=== PATIENT | female | born 1970 | race Caucasian/White ===

== ENCOUNTER 2020-09-11 08:11 | Outpatient (REF) | payer OTHER, SELFPAY ==
--- NOTE | ~2020-09-11 | US_ITS ---
EXAMINATION: US ABDOMEN COMPLETE CLINICAL INFORMATION: Abdominal pain. COMPARISON: None TECHNIQUE: Real-time imaging of the abdominal viscera. FINDINGS: PANCREAS: The head and body the pancreas are normal. The tail is not well visualized due to bowel gas. ABDOMINAL AORTA: The proximal, mid, and distal segments are normal in caliber. INFERIOR VENA CAVA: Visualized portions are normal. LIVER: Normal. The liver is normal in size. The liver contour is normal. Parenchymal echogenicity is normal. No focal hepatic lesion. There is no intrahepatic biliary duct dilatation seen. GALLBLADDER: Normal. The gallbladder is physiologically distended without evidence of stones, sludge, polyps, wall thickening or pericholecystic fluid. COMMON BILE DUCT: Normal in caliber measuring 0.4 cm in diameter. RIGHT KIDNEY: Normal. No hydronephrosis. No renal calculi or focal parenchymal lesions. The kidney measures 9.5 cm in maximum dimension. LEFT KIDNEY: Normal. No hydronephrosis. No renal calculi or focal parenchymal lesions. The kidney measures 11.3 cm in maximum dimension. SPLEEN: Normal. The spleen measures 10 cm in maximum dimension. FREE FLUID: None. US/US abdomen complete IMPRESSION: Limited visualization of the tail of the pancreas otherwise unremarkable exam.
== END 2020-09-11 08:12 | disposition home or self-care (01) ==
LOC: HO.HMGCX 08:11
PROVIDERS: PCP Internal Medicine; Visit Provider Internal Medicine
DX: R10.9 Unspecified abdominal pain (principal)
CPT/HCPCS: 76700; 99202

== ENCOUNTER 2020-10-02 09:17 | Outpatient (REF) | payer OTHER, SELFPAY ==
[2020-10-02 11:17] LABS: Hematocrit 34.7 % (37-47); Hemoglobin 10.7 g/dl (12.0-16.0); Mean Corpuscular HGB Conc 30.8 g/dl (31.0-35.0); Mean Corpuscular Hemoglobin 22.8 pg (27.0-33.0); Mean Corpuscular Volume 73.8 fL (80-98); Mean Platelet Volume 10.2 fL (9.4-12.3); Platelet Count 362 X10*3/uL (160-400); Red Cell Distribution Width 17.2 % (11.0-16.0); White Blood Count 4.2 X10*3/uL (4.8-10.8)
[2020-10-02 11:18] LABS: Glucose Urine UA NEG (NEG); Leukocyte Esterase Urine NEG (NEG); Nitrite Urine NEG (NEG); Specific Gravity - Urine 1.015 (1.005-1.025); Urine Blood NEG (NEG); Urine Ketones NEG (NEG); Urine Protein NEG (NEG-TRACE)
[2020-10-02 11:24] LABS: Appearance Urine HAZY; Color Urine YELLOW
[2020-10-02 11:38] LABS: Alanine Aminotransferase 9 U/L (0-31); Albumin Level 3.8 g/dL (3.5-5.0); Alkaline Phosphatase 91 U/L (39-117); Anion Gap 12 (12-20); Aspartate Amino Transferase 14 U/L (5-31); Bilirubin Total 0.4 mg/dL (0.0-1.0); Blood Urea Nitrogen 14 mg/dL (9-16); Carbon Dioxide 25 mmol/L (22-29); Chloride 106 mmol/L (96-108); Cholesterol 176 mg/dL; Estimated Glomerular Filt Rate > 60; Glucose Fasting 93 mg/dL (60-99); HDL Cholesterol 54 mg/dL; LDL Cholesterol Calculated 93 mg/dl; Potassium 4.2 mmol/L (3.3-5.1); Sodium 139 mmol/L (135-145); Triglycerides 146 mg/dL
[2020-10-02 11:45] LABS: Bacteria Urine TRACE /LPF; RBC Urine 0 /HPF (0); Squamous Epithelial Cell Urine 2+ /LPF; WBC Urine 0-2 /HPF (0-4)
[2020-10-02 12:01] LABS: Thyroid Stimulating Hormone 0.86 uIU/mL (0.32-4.0)
[2020-10-07 14:32] LABS: Transglutaminase Ab IgG 1 U/mL; Transglutaminase IgA 1 U/mL
== END 2020-10-02 09:18 | disposition home or self-care (01) ==
LOC: HO.HMGCLDS 09:17
PROVIDERS: PCP Internal Medicine; Visit Provider Nurse Practitioner Family
DX: Z00.00 Encounter for general adult medical examination without abnormal findings (principal); R10.11 Right upper quadrant pain; A04.8 Other specified bacterial intestinal infections; H93.19 Tinnitus, unspecified ear; Z83.79 Family history of other diseases of the digestive system
CPT/HCPCS: 36415; 80053; 80061; 81001; 83516; 84443; 85027

== ENCOUNTER 2020-10-17 14:54 | Outpatient (REF) | payer OTHER, SELFPAY ==
[2020-10-18 15:16] LABS: H Pylori Breath Test DETECTED (NOT DETECTED)
== END 2020-10-17 14:55 | disposition home or self-care (01) ==
LOC: CF 14:54
PROVIDERS: Referring Provider Internal Medicine; Visit Provider Nurse Practitioner Family
DX: K21.9 Gastro-esophageal reflux disease without esophagitis (principal); R10.9 Unspecified abdominal pain; K59.00 Constipation, unspecified; D64.9 Anemia, unspecified; Z12.11 Encounter for screening for malignant neoplasm of colon; Z11.0 Encounter for screening for intestinal infectious diseases
CPT/HCPCS: 83013; 99212

== ENCOUNTER → 2020-12-11 09:41 | Outpatient (BNVA) | payer OTHER, SELFPAY | PROVIDERS: PCP Internal Medicine; Referring Provider Nurse Practitioner Family; Visit Provider Internal Medicine | DX: Z01.810 Encounter for preprocedural cardiovascular examination (principal); R06.02 Shortness of breath | CPT/HCPCS: 93005; 99202 ==

== ENCOUNTER → 2021-01-05 07:15 | Outpatient (REF) | payer OTHER, SELFPAY ==
--- NOTE | 2021-01-05 07:18 | CA_ITS ---
Transthoracic Echocardiogram Patient (Last, First, Middle): Aura Damon, Gender: Female Date of : 1970 Age: 50 Procedure Date: 01/05/2021 Procedure Type: Transthoracic Echocardiogram Location: OP Height: 160.02 cm Weight: 99.79 kg BSA: 2.01 m2 Heart Rate: bpm BP: 128 / 78 mmHg Premium Service Representative: VH/CP Referring MD: Valente Rivera MD Information Technology Specialist: Thong Dorsey MD Symptoms: Z01.810 preprocedural cardiovascular exam, R06.02 SOB Study Quality: Fair ECG Rhythm: Sinus Conclusions: - Essentially normal study Findings Left Ventricle Normal left ventricular size, thickness, and systolic function. The visually estimated ejection fraction is between 60-65%. Spectral Doppler is indicative of a normal filling pattern. Right Ventricle Normal right ventricular cavity size and systolic function. Atria The left atrium is normal in size. There is no evidence of interatrial shunt. The right atrium is normal in size. Aortic Valve Normal aortic valve structure and function. There is no aortic valve stenosis. There is no aortic valve regurgitation. Mitral Valve Normal mitral valve structure and function. There is trace mitral valve regurgitation. There is no mitral valve stenosis. Pulmonic Valve The pulmonic valve is likely normal. Tricuspid Valve Normal tricuspid valve structure. The right ventricular systolic pressure is normal. The right ventricular systolic pressure is 19 mmHg. There is no evidence of pulmonary hypertension. Great Vessels All visible segments of the aorta are normal in size. The pulmonary artery was not well visualized. Venous The inferior vena cava is normal in size and collapses greater than 50% with inspiration. Pericardium/Pleural There is no evidence of pericardial effusion. Prior Study Comparison No prior study available for comparison. Measurements 2D Linear Measurements IVSd: 0.68 0.6-0.9/0.6-1.0 cm LVIDd: 5.46 3.9-5.3/4.2-5.9 cm LVIDd Index: 2.72 2.4-3.2/2.2-3.1 cm/m2 LVIDs: 3.37 2.0-3.6 cm LVPWd: 0.76 0.7-1.1 cm Ao Root: 2.80 2.1-3.5 cm LA Diam: 3.70 2.7-3.8/3.0-4.0 cm LAIDs Index: 1.84 1.5-2.3 cm/m2 LV Mass: 171.92 67-162/88-224 g LV Mass Index: 85.53 43-95/49-115 g/m2 LVOT Diam: 2.00 3.0+(-)1.3 cm 2D Systolic Function EF 4C: 64.50 >55% EF 2C: 67.30 >55% EF BiP: 64.80 >55% Mitral Valve MV Pk E: 0.95 MV PK A: 0.65 MV Decel Time: 180.00 E/A: 1.50 E'Lateral: 12.10 E'Medial: 11.10 E/E' Med: 8.50 E/E' Lat: 7.80 PHT: 53.00 MVA PHT: 4.15 Decel Treasure: 5.27 Aortic Valve AoV Pk Mateo: 1.34 AoV Mn Mateo: 0.95 AoV VTI: 0.34 AoV Pk Grad: 7.00 Aov Mn Grad: 4.00 NNAMDI Cont.VTI: 1.70 LVOT LVOT Pk Mateo: 0.76 LVOT Mn Mateo: 0.48 LVOT VTI: 0.18 LVOT Pk Grad: 2.00 LVOT Mn Grad: 1.00 LVOT Diam: 2.00 LVOT Area: 3.14 Diastolic Function MV Pk E: 0.95 MV Pk A: 0.65 E/A: 1.50 E'Medial: 11.10 E/E' Med: 8.50 E' Laterial: 12.10 E/E' Lat: 7.80 Tricuspid Valve TR Pk Mateo: 2.03 TR Pk Grad: 16.00 RA Press: 3.00 RVSP: 19.00 Great Vessels Aorta Ao Root-2D: 2.80 2.0-3.7 cm Ao Asc: 2.50 2.1-3.4 cm Ao Arch: 2.30 Updated in Other Vendor System with Status of Final Thong Dorsey MD electronically signed on 01/05/2021 9:10:41 AM with status of Final
== END ==
LOC: HO.CARD 07:15
PROVIDERS: Visit Provider Internal Medicine
DX: Z01.810 Encounter for preprocedural cardiovascular examination (principal); R06.02 Shortness of breath
CPT/HCPCS: 93306

== ENCOUNTER 2021-01-05 13:56 | Day surgery (SDC) | payer OTHER, SELFPAY ==
[2020-12-29 15:08] VITALS: BMI 39.6
[2021-01-02 10:21] VITALS: BMI 39.8
--- NOTE | 2021-01-04 14:44 | P.CONAN_ITS ---
Documented by User: Scarlett Templeton NP 01/04/21 14:47 HPI - Anesthesia Eval Consult details Narrative: 50yo F for Upper Endoscopy and Colonoscopy CARDIAC CLEARANCE PENDING ECHO - TBD DOS @ 0730 [facility] Active Problems Active Problems: All Active Problems (Updated 01/02/21 @ 10:21 by Lexie Smith, IFEOMA) Urticaria (Acute) Preoperative cardiovascular examination (Acute) SOB (shortness of breath) (Acute) Abdominal pain (Acute) Tinnitus (Acute) H. pylori infection (Acute) Annual physical exam (Acute) Past Medical History Medical History Abdominal pain Annual physical exam H. 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, Alcohol intake: never Patient Tobacco Use Status: Never used Tobacco Use of substances other than those prescribed or required for medical reasons: No Are you DNR?: No Advance Directives: No Advance Directives Information Provided: Yes (mailed) Advance Directives on File: No Recently lost weight without trying: No Patient : No FDLMP: 04/2020 hysterectomy Meds Allergies Allergy/AdvReac Type Severity Reaction Status Date / Time No Known Allergies Allergy Verified 01/02/21 10:18 Exam Exam Date and Time: January 04, 2021 1444 Height,Weight and Vital Signs: Height 5 ft 3 in Weight 102.058 kg Pertinent Lab Results Pertinent Lab Results: Laboratory Tests 10/02/20 10/02/20 09:23 09:23 WBC 4.2 L Hgb 10.7 L Hct 34.7 L Plt Count 362 Sodium 139 Potassium 4.2 Chloride 106 Carbon Dioxide 25 BUN 14 Creatinine 0.80 Narrative Narrative: EKG 11/2020 sinus rhythm at 73/Min; no significant ST-T changes and otherwise unremarkable. Assessment and Plan Assessment Anesthesia Assessment: Chart Reviewed Documented by User: Sherrie Hilliard MD 01/05/21 15:59 PMFSH Past Medical History Medical History Abdominal pain Annual physical exam H. 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, Alcohol intake: never Patient Tobacco Use Status: Never used Tobacco Use of substances other than those prescribed or required for medical reasons: No Are you DNR?: No Advance Directives: No Advance Directives Information Provided: Yes (mailed) Advance Directives on File: No Recently lost weight without trying: No Patient : No FDLMP: 04/2020 hysterectomy Meds Allergies Allergy/AdvReac Type Severity Reaction Status Date / Time No Known Allergies Allergy Verified 01/02/21 10:18 Exam Airway Mallampati Class: II TM Dist: >3cm Neck ROM: Full Denture: Lower Heart: RRR Lungs: CTA Assessment and Plan Final Anesthetic Review Family History of Problems with Anesthesia: No
[2021-01-05 14:14] VITALS: BP 143/79; PULSE 75; RESP 16; TEMP 36.9; O2SAT 96
[2021-01-05] MEDS: Lactated Ringers 1,000 ML 100 ML IVCONT (14:27)
--- NOTE | 2021-01-05 14:37 | P.CONAN_ITS ---
[facility] Active Problems Active Problems: All Active Problems (Updated 01/02/21 @ 10:21 by Lexie cuba, IFEOMA) Urticaria (Acute) Preoperative cardiovascular examination (Acute) SOB (shortness of breath) (Acute) Abdominal pain (Acute) Tinnitus (Acute) H. pylori infection (Acute) Annual physical exam (Acute) Past Medical History Medical History (Updated 01/02/21 @ 10:21 by Lexie Smith RN) Abdominal pain Annual physical exam H. 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, Alcohol intake: never Patient Tobacco Use Status: Never used Tobacco Use of substances other than those prescribed or required for medical reasons: No Are you DNR?: No Advance Directives: No Advance Directives Information Provided: Yes (mailed) Advance Directives on File: No Recently lost weight without trying: No Patient : No FDLMP: 04/2020 hysterectomy Meds Allergies Allergy/AdvReac Type Severity Reaction Status Date / Time No Known Allergies Allergy Verified 01/02/21 10:18 Active Medications: Current Medications Lactated Ringer's (Lr) 1,000 mls @ 100 mls/hr IVCONT .Q10H MANOJ Last Admin: 01/05/21 14:27 Dose: 100 mls/hr Documented by: Exam Exam Date and Time: January 05, 2021 1437 Height,Weight and Vital Signs: Height 5 ft 3 in Weight 102.058 kg Last Vital Signs Temp 98.4 F 01/05/21 14:14 Pulse 75 01/05/21 14:14 Resp 16 01/05/21 14:14 BP 143/79 H 01/05/21 14:14 Pulse Ox 96 01/05/21 14:14 Airway Mallampati Class: II TM Dist: >3cm Neck ROM: Full Heart: rrr Lungs: cta Assessment and Plan Assessment Anesthesia Assessment: Anesthesia Plan Discussed and Chart Reviewed Final Anesthetic Review Family History of Problems with Anesthesia: No History of Problems with Anesthesia: No NPO: Yes ASA Class: II Final Preanesthetic Review: No Changes in Pt Med Stat and Consent Obtained/Reviewed Patient Risk: Intermediate Procedure Risk: Intermediate Anesthetic Plan Anesthetic Plan: MAC: Disposition: Standard PACU
--- NOTE | 2021-01-05 14:47 | MHC.SHP ---
Pre-Procedural Eval Section A Date of Service: 01/05/21 The patient is an INPATIENT: No The History & Physical has been completed within 30 days and I have reviewed it.: No Section B Chief Complaint: screening, GERD, anemia Details of Present Illness: Colon cancer screening upper abdominal pain, H.pylori infection, anemia Relevant Family History (Specify if Yes): No Relevant Social History: None Present Medications: see Short Stay Collaborative assessment Medical History: Significant History (Abdominal pain Annual physical exam H. pylori infection Tinnitus) History of Previous Operations: Relevant previous surgery/procedure and date(s) (History of , history of hysterectomy, status post hemorrhoidectomy) Allergies: Allergies Allergy/AdvReac Type Severity Reaction Status Date / Time No Known Allergies Allergy Verified 01/02/21 10:18 Review of Systems Sugical H&P ROS: Negative: Constitution, Cardiovascular and Respiratory and Yes, Specify: Gastrointestinal (intermittent epigastric discomfort) Exam Surgical H&P Exam: Normal: Heart, Normal: Lungs, Normal: Extremities and Normal: Abdomen Plan Diagnosis/Plan: Unchanged I have reviewed the history and physical and performed a pertinent physical examination on my patient. No changes have occurred unless specified.
--- NOTE | 2021-01-05 15:50 | PM.OP ---
Brief Operative Note Date of Service: 01/05/21 Pre-op diagnosis: Colon cancer screening, upper abdominal pain, GERD, anemia Post-op diagnosis: other (Gastritis, gastric ulcer, colon polyp, diverticulosis and hemorrhoids) Procedure: FLEXIBLE TRANSORAL UPPER GASTROINTESTINAL ENDOSCOPY WITH BIOPSIES AND COLONOSCOPY TILL CECUM WITH SNARE POLYPECTOMY AND HEMOCLIP PLACEMENT UPPER ENDOSCOPY Consent: Indications for the procedure and potential complications of bleeding, perforation, reaction to medications and missed diagnosis were discussed with the patient and informed consent was obtained. Instrument: Olympus GIF H 190 mid size upper endoscope Monitoring: Vital signs and clinical assessment, continuous EKG monitoring, Pulse oximetry, Carbon Dioxide monitoring and blood pressure monitoring were done throughout the procedure. Procedure: The patient was placed in the left lateral decubitis position and pre-procedure medications were administered and a bite block was placed. The endoscope was inserted into the mouth and advanced under direct vision to the third part of duodenum. A careful inspection was made as the upper endoscope was withdrawn including a retroflexed examination of the proximal stomach; Findings and interventions are described below. Findings: Larynx: Normal Esophagus: GE junction at 35 cms. No esophagitis or Vásquez's. Stomach: A 1 cms healing ulcer in the prepyloric area - biopsied. Moderate gastric antral erythema. Biopsies were obtained. Grade 2 flap valve on retroflexed examination of the cardia. Duodenum: Normal bulb and descending duodenum. Biopsies were obtained from 3rd part of the duodenum to check for celiac sprue Intervention: Biopsies as noted above COLONOSCOPY PROCEDURE NOTE Consent: Indications for the procedure and potential complications of bleeding, perforation, reaction to medications and missed diagnosis were discussed with the patient and informed consent was obtained. Instrument: Olympus PCF H 190 L variable stiffness pediatric colonoscope Monitoring: Vital signs and clinical assessment, intermittent blood pressure monitoring, continuous EKG monitoring, Pulse oximetry and Carbon Dioxide monitoring were done throughout the procedure. Colon withdrawl time was 21 minutes. Procedure: The patient was placed in the left lateral decubitis position and pre-procedure medications were administered. After a digital rectal examination of the ano-rectum, the video colonoscope was inserted into the rectum and advanced through the colon to the cecum. The colonoscope was slowly withdrawn in a retrograde panoramic fashion and the colon mucosa was carefully examined including a retroflexed view of the rectum. Findings and interventions are described below. Procedure Difficulty: : Without difficulty Findings: Terminal Ileum: Not evaluated Cecum: Normal Ascending Colon: Normal Transverse Colon: Normal Descending Colon: Normal Sigmoid Colon: A 7-8 mm sessile polyp removed with a cold snare. Slow oozing noted at the polypectomy site controlled with placement of a hemoclip. Moderate diverticulosis Rectum: Normal Ano-rectum: Small internal hemorrhoids Colon preparation: Good after some irrigation Impression and Post Procedure Diagnosis: Endoscopy Findings: STOMACH: A 1 cms healing ulcer in the prepyloric area - biopsied. Likely due to H Pylori infection since patient denies NSAID or aspirin use. DUODENUM: normal - Colonoscopy Findings: One small polyp removed Mild diverticulosis seen in the sigmoid colon Small hemorrhoids on retroflexed exam. Plan: Await pathology results Patient has an appointment on 01/19/21 in the GI Clinic with Gissell Marroquin FNP-BC . Repeat Colonoscopy interval based on path results - in 5 years if polyps are adenomatous and 10 years if polyps are hyperplastic. Above findings were reviewed with the patient and colon polyps and peptic ulcer handouts were given in the discharge area. Pt was advised to resume Omeprazole for 3 months for gastric ulcer. Repeat EGD in 3 months to confirm Gastric Ulcer has healed. Surgeon: Erica Donnelly MD Anesthesia: MAC (Aura Lazaro CRNA) Was an Director Of Employee Development used for this Procedure?: No Director Of Employee Development: Adali [place] Estimated blood loss (mL): 2 Pathology: other ( A- Small bowel bx for celiac disease B- Gastric antrum bx r/o h. pylori C- Bx gastric ulcer D- Sigmoid polyp) Condition: stable Disposition: PACU
--- NOTE | 2021-01-05 15:50 | W.PM.OPN ---
Operative Note Operative Note Date of Service: 01/05/21 Narrative: Pre-op diagnosis:?Colon cancer screening, upper abdominal pain, GERD, anemia Post-op diagnosis:?other (Gastritis, gastric ulcer, colon polyp, diverticulosis and hemorrhoids) Procedure:? FLEXIBLE TRANSORAL UPPER GASTROINTESTINAL ENDOSCOPY WITH BIOPSIES AND COLONOSCOPY TILL CECUM WITH SNARE POLYPECTOMY AND HEMOCLIP PLACEMENT UPPER ENDOSCOPY Consent:?Indications for the procedure and potential complications of bleeding, perforation, reaction to medications and missed diagnosis were discussed with the patient and informed consent was obtained. Instrument:?Olympus GIF H 190 mid size upper endoscope Monitoring: Vital signs and clinical assessment, continuous EKG monitoring, Pulse oximetry, Carbon Dioxide monitoring and blood pressure monitoring were done throughout the procedure. Procedure:?The patient was placed in the left lateral decubitis position and pre-procedure medications were administered and a bite block was placed. The endoscope was inserted into the mouth and advanced under direct vision to the third part of duodenum. A careful inspection was made as the upper endoscope was withdrawn including a retroflexed examination of the proximal stomach; Findings and interventions are described below. Findings: Larynx:??Normal Esophagus:?GE junction at 35 cms.? No esophagitis or Vásquez's. Stomach:?A 1 cms healing ulcer in the prepyloric area - biopsied.? Moderate gastric antral erythema. Biopsies were obtained. Grade 2 flap valve on retroflexed examination of the cardia. Duodenum:?Normal bulb and descending duodenum. Biopsies were obtained from 3rd part of the duodenum to check for celiac sprue Intervention:?Biopsies as noted above COLONOSCOPY PROCEDURE NOTE Consent:?Indications for the procedure and potential complications of bleeding, perforation, reaction to medications and missed diagnosis were discussed with the patient and informed consent was obtained. Instrument:?Olympus PCF H 190 L variable stiffness pediatric colonoscope Monitoring:?Vital signs and clinical assessment, intermittent blood pressure monitoring, continuous EKG monitoring, Pulse oximetry and Carbon Dioxide monitoring were done throughout the procedure. Colon withdrawl time was 21 minutes. Procedure:?The patient was placed in the left lateral decubitis position and pre-procedure medications were administered. After a digital rectal examination of the ano-rectum, the video colonoscope was inserted into the rectum and advanced through the colon to the cecum. The colonoscope was slowly withdrawn in a retrograde panoramic fashion and the colon mucosa was carefully examined including a retroflexed view of the rectum. Findings and interventions are described below. Procedure Difficulty:?: Without difficulty Findings: Terminal Ileum: Not evaluated Cecum:? Normal Ascending Colon:??Normal Transverse Colon:??Normal Descending Colon:? Normal Sigmoid Colon:? A 7-8 mm sessile polyp removed with a cold snare.? Slow oozing noted at the polypectomy site controlled with placement of a hemoclip.? Moderate diverticulosis Rectum:??Normal Ano-rectum:??Small internal hemorrhoids Colon preparation:? Good after some irrigation Impression and Post Procedure Diagnosis: Endoscopy Findings: STOMACH: A 1 cms healing ulcer in the prepyloric area - biopsied. Likely due to H Pylori infection since patient denies NSAID or aspirin use. DUODENUM: normal - Colonoscopy Findings: One small polyp removed Mild diverticulosis seen in the sigmoid colon Small hemorrhoids on retroflexed exam. Plan: Await pathology results Patient has an appointment on 01/19/21 in the GI Clinic with ? Gissell Marroquin FNP-BC . Repeat Colonoscopy interval based on path results - in 5 years if polyps are adenomatous and 10 years if polyps are hyperplastic. Above findings were reviewed with the patient and colon polyps and peptic ulcer handouts were given in the discharge area. Pt was advised to resume Omeprazole for 3 months for gastric ulcer. Repeat EGD in 3 months to confirm Gastric Ulcer has healed. Surgeon:?Erica Donnelly MD Anesthesia:?MAC (Aura Lazaro CRNA) Was an Alarm Mechanism Adjuster used for this Procedure?:?No Alarm Mechanism Adjuster:?Adali [place] Estimated blood loss (mL):?2 Pathology:?other ( A- Small bowel bx for celiac disease? B- Gastric antrum bx r/o h. pylori? C- Bx gastric ulcer? D- Sigmoid polyp) Condition:?stable Disposition:?PACU
[2021-01-05 16:45] VITALS: BP 135/87; PULSE 98; RESP 16; TEMP 36.4; O2SAT 99
[2021-01-05 17:00] VITALS: BP 113/71; PULSE 85; RESP 16; TEMP 36.4; O2SAT 99
== END 2021-01-05 17:11 | disposition home or self-care (01) ==
PROVIDERS: PCP Internal Medicine; Visit Provider Internal Medicine Gastroenterology
PROC: (CPT 45385; principal; 2021-01-05 15:30)
DX: Z12.11 Encounter for screening for malignant neoplasm of colon (principal); D12.5 Benign neoplasm of sigmoid colon; K57.30 Diverticulosis of large intestine without perforation or abscess without bleeding; K64.8 Other hemorrhoids; K21.9 Gastro-esophageal reflux disease without esophagitis; K25.9 Gastric ulcer, unspecified as acute or chronic, without hemorrhage or perforation; K29.70 Gastritis, unspecified, without bleeding; B96.81 Helicobacter pylori [H. pylori] as the cause of diseases classified elsewhere; D64.9 Anemia, unspecified
CPT/HCPCS: 45385; 43239; 88305; 88342

== ENCOUNTER 2021-01-18 13:59 | Outpatient (REF) | payer OTHER, SELFPAY ==
[2021-01-18 14:53] LABS: Prothrombin Time 11.5 SEC (9.9-13.0)
[2021-01-18 15:04] LABS: Iron 37 mcg/dL (30-160); Percent Iron Saturation 8 % (15-50); Total Iron Binding Capacity 475 mcg/dL (228-428); Unsaturated Iron Binding 438 ug/dL
[2021-01-18 15:16] LABS: Lipase 30 U/L (8-78)
[2021-01-18 15:24] LABS: Ferritin 9 ng/mL (10-250)
[2021-01-18 15:29] LABS: Gamma Glutamyl Transpeptidase 15 U/L (7-33)
== END 2021-01-18 14:00 | disposition home or self-care (01) ==
LOC: HO.LAB 13:59
PROVIDERS: PCP Internal Medicine; Visit Provider Nurse Practitioner Family
DX: R10.9 Unspecified abdominal pain (principal); R74.8 Abnormal levels of other serum enzymes
CPT/HCPCS: 36415; 82728; 82977; 83540; 83690; 85610

== ENCOUNTER → 2021-02-23 09:16 | Outpatient (BNVA) | payer OTHER, SELFPAY | PROVIDERS: PCP Internal Medicine; Referring Provider Internal Medicine; Visit Provider Nurse Practitioner Family ==

== ENCOUNTER → 2021-04-27 11:49 | Outpatient (BNVA) | payer OTHER, SELFPAY | PROVIDERS: PCP Internal Medicine; Visit Provider Nurse Practitioner Family ==

== ENCOUNTER 2021-06-15 22:00 | Outpatient (REF) | payer OTHER, SELFPAY | END 2021-06-15 22:01 | disposition home or self-care (01) | LOC: HO.LNP 22:00 | PROVIDERS: Visit Provider Nurse Practitioner Family | DX: Z11.0 Encounter for screening for intestinal infectious diseases (principal); K21.9 Gastro-esophageal reflux disease without esophagitis | CPT/HCPCS: 87338 ==

== ENCOUNTER 2021-07-11 03:30 | Emergency (ER) | payer OTHER, SELFPAY ==
--- NOTE | ~2021-07-11 | CT_ITS ---
EXAMINATION: CT ABDOMEN AND PELVIS WITH CONTRAST CLINICAL INFORMATION: Abdominal pain. History of peptic ulcer disease. COMPARISON: Ultrasound from 09/11/2020 TECHNIQUE: Multidetector volumetric images were obtained from the superior aspect of the liver through the pubic symphysis following administration 85 mL of Omnipaque 350 intravenous contrast. Sagittal and coronal reformatted images were obtained on the technologist's workstation. Oral contrast: No This CT examination was performed using dose optimization techniques as appropriate, variously including the following: *Automated exposure control *Adjustment of mA and/or kV according to patient size (this includes techniques or standardized protocols for targeted exams where dose is matched to indication/reason for exam; i.e. extremities or head) *Use of iterative reconstruction technique DLP: 920 mGy-cm FINDINGS: LUNG BASES: Bibasilar atelectasis. The visualized cardiac structures are unremarkable. LIVER, GALLBLADDER, AND BILIARY TREE: The liver is normal in size, shape, and attenuation. No focal hepatic lesion or biliary ductal dilatation is present. Small stone layering in the gallbladder lumen. No wall thickening or adjacent inflammation. PANCREAS: Unremarkable. SPLEEN: Unremarkable. ADRENAL GLANDS: Unremarkable. KIDNEYS AND URETERS: The kidneys are normal in size, shape, and attenuation. No hydronephrosis, hydroureter, or calculi seen. No perinephric stranding. BLADDER: Unremarkable. GASTROINTESTINAL TRACT: The stomach is unremarkable. Normal caliber small bowel. No obstruction. No colonic wall thickening or inflammatory change. No free air or free fluid. Normal appendix. ABDOMINAL WALL: No significant hernia is appreciated. LYMPH NODES: Normal. VASCULAR: Unremarkable. PELVIC VISCERA: Uterus not seen. 3.2 cm simple appearing right adnexal cyst. This is almost certain likely benign. OSSEOUS STRUCTURES: No acute or suspicious osseous abnormality. Mild degenerative changes in the spine. CT/CT abdomen pelvis w con IMPRESSION: Cholelithiasis without evidence of acute cholecystitis. No acute inflammatory changes of the abdomen or pelvis. Fleischner guidelines were followed.
--- NOTE | 2021-07-11 03:39 | ECG_ITS ---
Test Reason : flank pain Blood Pressure : / mmHG Vent. Rate : 078 BPM Atrial Rate : 078 BPM P-R Int : 132 ms QRS Dur : 084 ms QT Int : 398 ms P-R-T Axes : 046 -05 037 degrees QTc Int : 453 ms Normal sinus rhythm Normal ECG No previous ECGs available Referred By: Generic ED Physician Electronically Signed By:KHRIS HUNT MD
[2021-07-11 03:40] VITALS: BP 122/108; PULSE 83; RESP 24; TEMP 36.8; O2SAT 95; BMI 38.9
[2021-07-11 03:55] LABS: Hematocrit 37.8 % (37.0-47.0); Hemoglobin 12.6 g/dl (12.0-16.0); Mean Corpuscular HGB Conc 33.3 g/dl (31.0-35.0); Mean Corpuscular Hemoglobin 27.3 pg (27.0-33.0); Mean Platelet Volume 10.4 fL (9.4-12.3); Platelet Count 304 X10*3/uL (160-400); Red Blood Count 4.61 X10*6/uL (4.20-5.50); Red Cell Distribution Width 13.9 % (11.0-16.0)
[2021-07-11 04:21] LABS: Alanine Aminotransferase 13 U/L (0-31); Albumin Level 3.9 g/dL (3.5-5.0); Alkaline Phosphatase 96 U/L (39-117); Anion Gap 14 (12-20); Aspartate Amino Transferase 12 U/L (5-31); Bilirubin Total 0.3 mg/dL (0.0-1.0); Blood Urea Nitrogen 21 mg/dL (9-16); Calcium 9.6 mg/dL (8.4-10.2); Carbon Dioxide 22 mmol/L (22-29); Chloride 107 mmol/L (96-108); Creatinine Clr Calc Pharmacy 79.6; Estimated Glomerular Filt Rate > 60; Glucose Random 112 mg/dL (60-115); Potassium 4.1 mmol/L (3.3-5.1); Sodium 139 mmol/L (135-145)
--- NOTE | 2021-07-11 04:34 | ED_ITS ---
HPI - Abdominal Pain General Chief Complaint: Abdominal Pain Stated Complaint: right side pain, possible GI problem Time Seen by Provider: 07/11/21 04:16 Source: patient and family (Son) Mode of arrival: ambulatory History of Present Illness HPI narrative: 51-year-old female without significant past medical history other than known recent H pylori infection as well as ulcer and has been on a regimen that includes sucralfate and omeprazole, however patient as been having intermittent adherence to this medication. She states that she has had some pain off and on over the past weeks without fever, chills, diarrhea, urinary symptoms, shortness of breath, new cough, chest pain/palpitations. Patient states that this morning she woke up at 02:00 with significant pain radiating into her back with some mild nausea. Related Data Previous Rx's Medication Instructions Recorded ketoconazole 2 % topical cream 1 appl TOPICAL BID #30 g 02/28/20 docusate sodium 100 mg capsule 100 mg PO BEDTIME #30 cap 04/27/21 methylcellulose (laxative) 500 mg 500 mg PO DAILY #30 tab 04/27/21 tablet (Citrucel) pantoprazole 40 mg tablet,delayed 40 mg PO BID #60 tab 04/27/21 release sucralfate 100 mg/mL oral 10 ml PO BEDTIME #400 ml 04/27/21 suspension sertraline 50 mg tablet 50 mg PO DAILY #30 tab 07/05/21 Allergies Allergy/AdvReac Type Severity Reaction Status Date / Time No Known Allergies Allergy Verified 07/05/21 14:33 Review of Systems Review of Systems Pertinent positives and negatives as stated in HPI 10 point review of systems is otherwise negative. [facility] Past Medical History Source: nursing notes reviewed Medical History Abdominal pain Annual physical exam Anxiety H. 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, Housing: House Alcohol intake: current Alcohol intake frequency: does not drink Patient Tobacco Use Status: Never used Tobacco e-Cigarette/Vaping Use: Never Used Use of substances other than those prescribed or required for medical reasons: No Advance Directives: No Advance Directives Information Provided: Yes Current occupational status: employed Cognitive needs: No Hearing needs: No Vision needs: Yes Physical Exam ED Vital Signs: Vital Signs - 24 hr 07/11/21 03:40 Temperature 98.3 F Pulse Rate 83 Respiratory Rate 24 H Blood Pressure 122/108 H Pulse Oximetry 95 BMI result Body Mass Index 38.9 VITAL SIGNS: Reviewed. GENERAL: Well developed, well nourished, moderate painful distress. HEAD: Normocephalic/atraumatic EYES: PERRLA, EOMI EARS: Ext canals without abnormality OROPHARYNX: no oral lesions noted, posterior pharynx clear LUNGS: Normal breath sounds. No adventitious sounds or accessory muscle use. SpO2<95> CARDIOVASCULAR: Regular rate and rhythm without noted murmurs ABDOMEN: Soft, pain on palpation over right upper quadrant without rebound, abdo men is not consistent with peritonitis, non-distended with bowel sounds. MUSCULOSKELETAL: No tenderness, deformities, or effusions noted on gross inspection. EXTREMITIES: No cyanosis, clubbing or edema. SKIN: Inspection of the skin reveals no rashes NEUROLOGIC: Alert and oriented x 4. Strength and sensation to light touch were grossly intact x 4. ED BEDSIDE ULTRASOUND Gallbladder assessment: Gallbladder wall without thickening, no evidence to suggest pericholecystic fluid, no shadowing to indicate stones and no overt stone Brief look at the kidney without evidence to suggest hydronephrosis. Course Course Course Narrative: 51F with history and clinical presentation consistent with severe gastritis/ulcer pain, less likely felt to be gallbladder, pancreas, or renal colic. Patient provided with GI cocktail as well as a dose of Carafate. On review of all investigations there are no acute findings. On re-evaluation patient was still having significant pain, the decision was made to give her some additional pain medication and scan the abdomen pelvis. On review of these findings it was only positive for cholelithiasis. On re-evaluation once again patient is feeling much better and stable for discharge to home. She was informed of all results. MDM - Abdominal Pain Lab Data Result diagrams: 07/11/21 03:50 07/11/21 03:50 Labs: Lab Results 07/11/21 07/11/21 07/11/21 Range/Units 03:50 03:50 04:44 WBC 6.0 (4.8-10.8) X10*3/uL RBC 4.61 (4.20-5.50) X10*6/uL Hgb 12.6 (12.0-16.0) g/dl Hct 37.8 (37.0-47.0) % MCV 82.0 (80.0-98.0) fL MCH 27.3 (27.0-33.0) pg MCHC 33.3 (31.0-35.0) g/dl RDW 13.9 (11.0-16.0) % Plt Count 304 (160-400) X10*3/uL MPV 10.4 (9.4-12.3) fL Absolute Nucleated RBC 0.000 (0.0-0.012) X10*3/uL Nucleated RBC % (auto) 0.0 (0.0-0.2) /100WBC Sodium 139 (135-145) mmol/L Potassium 4.1 (3.3-5.1) mmol/L Chloride 107 (96-108) mmol/L Carbon Dioxide 22 (22-29) mmol/L Anion Gap 14 (12-20) BUN 21 H (9-16) mg/dL Creatinine 0.92 (0.5-1.4) mg/dL Estim Creat Clear Calc 79.6 Estimated GFR > 60 Random Glucose 112 (60-115) mg/dL Calcium 9.6 D (8.4-10.2) mg/dL Total Bilirubin 0.3 (0.0-1.0) mg/dL AST 12 (5-31) U/L ALT 13 (0-31) U/L Alkaline Phosphatase 96 (39-117) U/L Troponin I High Sens < 3.5 (<3.5-17.0) ng/L Total Protein 7.0 (6.5-8.0) g/dL Albumin 3.9 (3.5-5.0) g/dL Lipase 45 (8-78) U/L ECG Data Attestation: I personally reviewed and interpreted this ECG as follows: Prior ECG tracings: not available for review Interpretation: Anasarca, HR-78, no STEMI, NV/QRS/QTC are within normal limits. Discharge Plan Discharge Clinical Impression: Stomach ulcer, Cholelithiasis Patient Disposition: Home, Self-Care Instructions: Diet for Stomach Ulcers and Gastritis (ED), Gallstones (ED) Additional Instructions: 1. Resume all home medications as prescribed. I recommend that you increase your sucralfate to twice a day. You need to increase water intake as the medication could lead to constipation. 2. Follow-up with your primary care provider in the next 2-3 days for re- evaluation. Return to the ER for worsening symptoms. Prescriptions: No Action ketoconazole 2 % cream 1 appl topical BID Qty: 30 3RF sertraline 50 mg tablet 50 mg PO DAILY Qty: 30 3RF Rx Instructions: 1/2 tabl po qd for 3 days, then 1 QD pantoprazole 40 mg tablet,delayed release (DR/EC) 40 mg PO BID Qty: 60 4RF sucralfate 100 mg/mL suspension 10 ml PO BEDTIME Qty: 400 3RF docusate sodium 100 mg capsule 100 mg PO BEDTIME Qty: 30 3RF Citrucel 500 mg tablet 500 mg PO DAILY Qty: 30 2RF
[2021-07-11 04:37] LABS: Lipase 45 U/L (8-78)
[2021-07-11] MEDS: Lidocaine HCl Viscous 2 % 15 ML SOLUTION 10 ML MUCOUS MEM (04:42)
[2021-07-11] MEDS: Magnesium Hydrox/Alum Hydrox 30 ML ORAL.SUSP PO (04:43)
[2021-07-11] MEDS: Sucralfate Oral Suspension 1 GM/10 ML ORAL.SUSP PO (04:43)
[2021-07-11 05:11] LABS: Troponin-I High Sensitivity < 3.5 ng/L (<3.5-17.0)
[2021-07-11] MEDS: fentaNYL citrate/PF 100 MCG/2 ML VIAL 25 MCG IVPUSH (05:46)
[2021-07-11] MEDS: iohexoL 350 MG/ML 100 ML INFUS..BTL 85 ML IV (06:15)
== END 2021-07-11 06:58 | disposition home or self-care (01) ==
PROVIDERS: Emergency Provider Student in an Organized Health Care Education/Training Program
DX: K25.9 Gastric ulcer, unspecified as acute or chronic, without hemorrhage or perforation (principal); K80.20 Calculus of gallbladder without cholecystitis without obstruction; A04.8 Other specified bacterial intestinal infections; Z79.899 Other long term (current) drug therapy
CPT/HCPCS: 36415; 74177; 80053; 83690; 84484; 85027; 93005; 96374; 99284; J3010; Q9967

== ENCOUNTER → 2021-07-27 10:56 | Outpatient (BNVA) | payer OTHER, SELFPAY | PROVIDERS: Visit Provider Nurse Practitioner Family | DX: K58.2 Mixed irritable bowel syndrome (principal) ==

== ENCOUNTER 2021-10-18 08:19 | Day surgery (SDC) | payer OTHER, SELFPAY ==
[2021-10-12 09:58] VITALS: BMI 40.9
[2021-10-18] VITALS (15 sets, daily range): BP systolic 121–163; BP diastolic 59–97; PULSE 61–85; RESP 16–18; TEMP 36.4; O2SAT 93–100; BMI 38.9
--- NOTE | 2021-10-18 07:09 | W.PM.OPN ---
Operative Note Operative Note Date of Service: 10/18/21 Narrative: Preop diagnosis: [Biliary colic] Postop diagnosis: aric, CASEY[] Procedure: [Laparoscopic cholecystectomy] Surgeon: Lopez Aleman MD Assist: [Margarito Zheng PA-C] Anesthesia: [General endotracheal] Estimated blood loss: [3cc] Specimen: [Gallbladder and content] Intraoperative findings: [Cystic duct 5-6 mm; cystic artery 3-4 mm. Critical view of safety demonstrated. PEÑA and hepatomegaly made exposure more difficult than typical] Indications: The patient is a 51-year-old woman who has been experiencing typical symptoms of biliary colic. She has been evaluated at multiple emergency rooms and wanted to have surgery here at [place]. I reviewed the inherent risks of laparoscopic cholecystectomy which include, but are not limited to: Bleeding, infection, need for an open operation, the unlikely but possible issues of retained common duct stones or bile leak that could require an ERCP, the unlikely but possible issue of ongoing abdominal pain, common bile duct injury that could require transfer to a larger institution; activity restrictions postoperatively and dietary recommendations were also reviewed. The patient seemed understand all of her options and wanted to proceed. Procedure: [The patient was identified in preoperative holding and again in the operating room and placed supine on the table. The patient voided bladder functional skills tutor, sequential compression stockings were in place, subcu heparin had been administered and antibiotics per protocol were given. The patient was induced in general endotracheal anesthesia administered with excellent effect. An appropriate time-out was performed. A footboard was utilized. The patient's abdomen was widely prepped and draped in the usual manner for surgery using chlorhexidine. Preemptive local was used at all trocar insertion sites. Again at the supraumbilical location and after infiltrating local, made a stab incision and placed a Veress needle without difficulty. An appropriate drop test was performed and a pneumoperitoneum of 15 mmHg was obtained using carbon dioxide. Next, the needle was withdrawn and a 5 mm/30 degree laparoscoped over Optiview trocar was used to access the abdomen without incident. Upon examining the abdomen, there was no evidence of injury from the Veress needle or trocar. Next, 5 mm trocars were placed in the epigastric, subcostal and right anterior axillary line just above the line of the umbilicus. Under direct laparoscopic vision, the 5 mm umbilical port was upsized to a 10 mm. The patient was then positioned in reverse Trendelenburg position and banked left. The gallbladder was clearly identified and grasped by its fundus. It was retracted cranially and anteriorly and dissection began in the cystic triangle. The cystic duct was identified at its junction on the gallbladder and dissection began laterally, then circumferentially dissected using the [place] dissector and hook. The cystic artery was then carefully identified and circumferentially dissected. Once dissection of both structures was complete and the critical view of safety demonstrated, the duct and artery were double clipped proximally and once distally and sharply divided. Electrocautery was used to remove the gallbladder from its fossa on the liver. Liver bed was inspected for hemostasis and the clips were noted to be on the respective structures. The gallbladder was placed in an Endo-Catch bag and delivered through the umbilicus under direct laparoscopic vision. The abdomen was again inspected with the laparoscoped and a abdomen deflated to assess for hemostasis. The patient was returned to neutral position, the abdomen deflated and the fascia of the supraumbilical incision closed with interrupted Vicryl sutures. Skin was closed with 4-0 Monocryl subcuticular sutures. Mastisol and Steri-Strips were applied followed by Band-Aids. The patient tolerated the procedure well and was extubated recovered in stable condition. All sponge instrument counts were correct. At the patient's request I called her daughter Dee at [phone] and apprised her of the operation and activityrestrictions/diet recommendations. Her questions seemed to be satisfactorily answered.]
--- NOTE | 2021-10-18 08:37 | MHC.SHP ---
Pre-Procedural Eval Section A Date of Service: 10/18/21 The patient is an INPATIENT: No The History & Physical has been completed within 30 days and I have reviewed it.: Yes Section B Chief Complaint: calculus of bile and gallbladder Allergies: Allergies Allergy/AdvReac Type Severity Reaction Status Date / Time No Known Allergies Allergy Verified 10/12/21 09:33 Plan I have reviewed the history and physical and performed a pertinent physical examination on my patient. No changes have occurred unless specified.
[2021-10-18] MEDS: Heparin Sodium,Porcine 5,000 UNIT/ML VIAL 5000 UNIT SUBCUT (08:52)
--- NOTE | 2021-10-18 08:58 | P.CONAN_ITS ---
HPI - Anesthesia Eval Consult details Narrative: 51 yo female patient for lap catherine, possible open, possible cholangiogram PMFSH Active Problems Active Problems: All Active Problems (Updated 09/26/21 @ 16:57 by Lopez Aleman MD) Biliary colic (Acute) Gallstones (Acute) Anxiety (Acute) Pruritus (Acute) Urticaria (Acute) Preoperative cardiovascular examination (Acute) SOB (shortness of breath) (Acute) Abdominal pain (Acute) Tinnitus (Acute) H. pylori infection (Acute) Annual physical exam (Acute) Increased BMI Denies PIERRE Past Medical History Medical History Abdominal pain Annual physical exam Anxiety H. 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, Housing: House Are you a primary attending ambulatory care to a significant other at home: No Do you presently have visiting nurse or other home services: No Alcohol intake: current Alcohol intake frequency: does not drink Patient Tobacco Use Status: Never used Tobacco e-Cigarette/Vaping Use: Never Used Are you DNR?: No Advance Directives: No Advance Directives Information Provided: Yes Advance Directives on File: No Recently lost weight without trying: No Eating poorly because of decreased appetite: No Nutrition Risks: No Nutritional Risk Current occupational status: employed Cognitive needs: No Hearing needs: No Vision needs: Yes Meds Allergies Allergy/AdvReac Type Severity Reaction Status Date / Time No Known Allergies Allergy Verified 10/12/21 09:33 Home Medications Medication Instructions Recorded Confirmed Last Taken Type omeprazole 20 mg capsule,delayed 20 mg PO BID 09/26/21 10/12/21 Unknown History release ondansetron 4 mg disintegrating 4 mg PO DAILY PRN Nausea 09/26/21 10/12/21 Unknown History tablet Exam Exam Date and Time: October 18, 2021 0858 Height,Weight and Vital Signs: Height 5 ft 3 in Weight 99.79 kg Last Vital Signs Temp 97.6 F 10/18/21 08:28 Pulse 69 10/18/21 08:28 Resp 16 10/18/21 08:28 BP 121/66 10/18/21 08:28 Pulse Ox 97 10/18/21 08:28 O2 Del Method 10/18/21 08:28 Airway Mallampati Class: II TM Dist: >3cm Neck ROM: Full Loose/Missing/Broken Teeth: No (Patient denies) Heart: RRR Lungs: CTAB Assessment and Plan Assessment Anesthesia Assessment: Anesthesia Plan Discussed and Chart Reviewed Final Anesthetic Review Family History of Problems with Anesthesia: No History of Problems with Anesthesia: No NPO: Yes ASA Class: II Final Preanesthetic Review: No Changes in Pt Med Stat, Meds/Allgs Chart Reviewed, Consent Obtained/Reviewed and Anes Risks/Benef Reviewed Patient Risk: Intermediate Procedure Risk: Low Assessment/Block/Sedation in SS: Assess/Block/Sedation-SS Anesthetic Plan Anesthetic Plan: GA Disposition: Standard PACU
[2021-10-18] MEDS: ondansetron HCL 4 MG/2 ML VIAL IVPUSH (12:07)
[2021-10-18] MEDS: oxyCODONE HCl Immed Release 5 MG TABLET PO (12:07)
[2021-10-18] MEDS: Ketorolac Tromethamine 30 MG/ML VIAL 15 MG IVPUSH (12:09)
[2021-10-18] MEDS: fentaNYL citrate/PF 100 MCG/2 ML VIAL 25 MCG IVPUSH (12:57)
== END 2021-10-18 14:25 | disposition home or self-care (01) ==
LOC: HO.SSS 08:21
PROVIDERS: Visit Provider Surgery
PROC: 0FT44ZZ Resection of Gallbladder, Percutaneous Endoscopic Approach (ICD-10-PCS; CPT 47562; principal; 2021-10-18 10:00)
DX: K80.10 Calculus of gallbladder with chronic cholecystitis without obstruction (principal); Z86.19 Personal history of other infectious and parasitic diseases; Z79.899 Other long term (current) drug therapy
CPT/HCPCS: 47562; 88304; J0131; J0690; J1100; J1885; J2250; J2405; J2550; J3010; Q9967

== ENCOUNTER 2021-11-01 09:05 | Outpatient (REF) | payer OTHER, SELFPAY ==
--- NOTE | ~2021-11-01 | XR_ITS ---
EXAMINATION: XR FOOT, LEFT CLINICAL INFORMATION: Pain COMPARISON: None TECHNIQUE: AP, lateral, and oblique views of the left foot. FINDINGS: No acute fracture or dislocation. There is degeneration and hallux valgus first MTP joint. Likely bunion formation. No acute bony erosion is seen. Mild to moderate spurring at the insertion of the plantar aponeuroses. XR/XR foot LT min 3V IMPRESSION: No acute finding. Degenerative changes are noted.
== END 2021-11-01 09:06 | disposition home or self-care (01) ==
LOC: HO.HMGCX 09:05
PROVIDERS: PCP Internal Medicine; Visit Provider Physician Assistant
DX: M79.673 Pain in unspecified foot (principal)
CPT/HCPCS: 73630

== ENCOUNTER 2022-02-27 18:47 | Emergency (ER) | payer OTHER, SELFPAY ==
--- NOTE | ~2022-02-27 | XR_ITS ---
EXAMINATION: XR chest 1V CLINICAL INFORMATION: Reason for Exam cp COMPARISON: None TECHNIQUE: XR chest 1V Tubes and lines: None Lungs and pleura: Diminished lung volume, exaggerated by portable technique no acute infiltrates. Heart and mediastinum: The mediastinum is within normal limits.. Bones/soft tissue: Skeletal structures included are normal for patient's age. XR/XR chest 1V IMPRESSION: * No radiographic evidence of acute cardiopulmonary disease. * Diminished lung volume exaggerated by portable technique.
[2022-02-27 18:58] VITALS: PULSE 94; RESP 16; TEMP 35.9; O2SAT 98; BMI 38.9
--- NOTE | 2022-02-27 19:02 | ED.CHESTPAIN ---
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 with sharp chest pain and on lasting for few minutes assist with slight shortness of breath no diaphoresis no nausea no vomiting <Arjun Hickey MD - Last Filed: 02/28/22 00:49> Related Data Allergies/Adverse Reactions: Allergies Allergy/AdvReac Type Severity Reaction Status Date / Time No Known Allergies Allergy Verified 01/29/22 10:11 <Sneha Bella MD - Last Filed: 02/27/22 19:03> Review of Systems Review of Systems: Yes all other systems are reviewed and are negative <Arjun Hickey MD - Last Filed: 02/28/22 00:49> PMFSH Past Medical History Medical History: Medical History Abdominal pain Annual physical exam Anxiety H. 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:: , 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, 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, Housing: House Are you a primary day care provider to a significant other at home: No Do you presently have visiting nurse or other home services: No Alcohol intake: current Alcohol intake frequency: does not drink Patient Tobacco Use Status: Never used Tobacco e-Cigarette/Vaping Use: Never Used Advance Directives: No Advance Directives Information Provided: Yes Current occupational status: 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 Cognitive needs: No Hearing needs: No Vision needs: Yes <Sneha Bella MD - Last Filed: 02/27/22 19:03> Physical Exam Vital Signs: Vital Signs: Last Vital Signs Temp 98.1 F 02/27/22 22:44 Pulse 68 02/28/22 00:20 Resp 18 02/28/22 00:20 BP 130/62 02/28/22 00:20 Pulse Ox 98 02/28/22 00:20 O2 Del Method 02/28/22 00:20 BMI result Body Mass Index 38.9 <Sneha Bella MD - Last Filed: 02/27/22 19:03> Vital Signs: Last Vital Signs Temp 98.1 F 02/27/22 22:44 Pulse 68 02/28/22 00:20 Resp 18 02/28/22 00:20 BP 130/62 02/28/22 00:20 Pulse Ox 98 02/28/22 00:20 O2 Del Method 02/28/22 00:20 BMI result Body Mass Index 38.9 <Arjun Hickey MD - Last Filed: 02/28/22 00:49> Appearance: Alert. Oriented X3. No acute distress. Eyes: PERRLA, No Nystagmus ENT: Pharynx normal. Oral Mucosa moist Neck: Normal inspection. Neck supple. CVS: Normal heart rate and rhythm. Pulses normal. No murmur rub or gallop occasional PVCs Respiratory: No respiratory distress. Equal air entry bilateral, no wheezing/rales/rhonchi Abdomen: Soft and nontender. Bowel sounds are present, no mass palpable, no CVA tenderness Skin: Skin warm and dry. Normal skin color. Normal skin turgor. Extremities: No lower extremity edema. No calf tenderness Neuro: Oriented X 3. No motor deficit. <Arjun Hickey MD - Last Filed: 02/28/22 00:49> Course Course Course Narrative: RME- Patient is 52 years old presents today with having chest pain that is mid chest. No radiation. Associated with shortness of breath. Associated with palpitation and seems to be fast. Patient has a history of anxiety. No history of diabetes, hypertension, hypercholesterolemia, mi, family history of [place]. No risk for pulmonary emboli. No leg swelling. No travel. No history of cancer. The pain has been persistent all day. Labs EKG ordered. Patient placed back in the waiting <Sneha Bella MD - Last Filed: 02/27/22 19:03> Medical Decision Making Medical Decision Making MDM Narrative: Patient is a episode of palpitation without any syncope but felt dizzy, lasting only for few minutes for last 2 days teletypesetter monitor showed no arrhythmias EKG normal sinus rhythm initial high sensitive troponin is negative will repeat 2nd set along with D-dimer rule out PE Patient D-dimer is negative for PE cardiac monitoring showing occasional PVCs likely the cause for a palpitation feeling discharge patient home <Arjun Hickey MD - Last Filed: 02/28/22 00:49> Differential Diagnoses: Differential diagnosis (Atrial fibrillation/SVT/atrial flutter/ectopic/PACs/ACS) <Arjun Hickey MD - Last Filed: 02/28/22 00:49> Lab Attestation: I reviewed the patient's lab results. <Arjun Hickey MD - Last Filed: 02/28/22 00:49> Independent interpretation of EKG, rhythm strip, radiology study: Independent interp EKG,rhythm strip, radiology study I performed an independent interpretation of the: EKG My interpretation is Normal sinus rhythm heart rate 84 beats per minute normal interval normal axis no acute ischemia <Arjun Hickey MD - Last Filed: 02/28/22 00:49> Discharge Plan Discharge Clinical Impression: Chest pain, Premature ventricular beats <Sneha Bella MD - Last Filed: 02/27/22 19:03> Patient Disposition: Home, Self-Care <Sneha Bella MD - Last Filed: 02/27/22 19:03> Instructions: Chest Pain (ED), Premature Ventricular Contractions (ED) <Sneha Bella MD - Last Filed: 02/27/22 19:03> Additional Instructions: Decrease caffeine intake Continue your medications and follow with your PCP for further management including Holter monitoring Report to the ER if any syncope episode. <Sneha Bella MD - Last Filed: 02/27/22 19:03> Interventions: ED Discharge Assessment Last Done: 02/28/22 00:20 <Sneha Bella MD - Last Filed: 02/27/22 19:03> Discharge Date/Time: 02/28/22 00:21 <Sneha Bella MD - Last Filed: 02/27/22 19:03>
[2022-02-27 19:17] LABS: MANUAL DIFF FLAG NO
[2022-02-27 19:23] LABS: Basophils Absolute Auto 0.1 X10*3/uL (0.0-0.2); Basophils Percent Auto 1.3 % (0-2); Eosinophils Absolute Auto 0.3 X10*3/uL (0.0-0.4); Hematocrit 42.5 % (37.0-47.0); Imm Gran Abs Auto 0.02 X10*3/uL (0.00-0.03); Imm Gran Pct Auto 0.3 % (0.0-0.4); Lymphocytes Absolute Auto 1.6 X10*3/uL (1.2-4.9); Lymphocytes Percent Auto 26.1 % (20-40); Mean Corpuscular HGB Conc 35.3 g/dl (31.0-35.0); Mean Corpuscular Hemoglobin 30.2 pg (27.0-33.0); Mean Corpuscular Volume 85.5 fL (80.0-98.0); Mean Platelet Volume 10.4 fL (9.4-12.3); Monocytes Absolute Auto 0.3 X10*3/uL (0.1-1.2); Monocytes Percent Auto 5.5 % (2-11); Neutrophils Absolute Auto 3.7 x10*3/uL (2.0-8.3); Neutrophils Percent Auto 61.8 % (45-73); Platelet Count 305 X10*3/uL (160-400); Red Blood Count 4.97 X10*6/uL (4.20-5.50); Red Cell Distribution Width 12.4 % (11.0-16.0)
--- NOTE | 2022-02-27 19:27 | ECG_ITS ---
Normal sinus rhythm Normal ECG When compared with ECG of 11-JUL-2021 03:40 No significant change was found MTDD
[2022-02-27 19:33] LABS: Alanine Aminotransferase 15 U/L (0-31); Albumin Level 4.2 g/dL (3.5-5.0); Alkaline Phosphatase 90 U/L (39-117); Anion Gap 13 (12-20); Aspartate Amino Transferase 14 U/L (5-31); Bilirubin Direct 0.2 mg/dL (0.0-0.5); Bilirubin Total 0.5 mg/dL (0.0-1.0); Blood Urea Nitrogen 17 mg/dL (9-16); Calcium 9.5 mg/dL (8.4-10.2); Carbon Dioxide 24 mmol/L (22-29); Chloride 107 mmol/L (96-108); Creatinine Clr Calc Pharmacy 72.4; Estimated Glomerular Filt Rate 58; Glucose Random 99 mg/dL (60-115); Lipase 24 U/L (8-78); Potassium 3.7 mmol/L (3.3-5.1); Sodium 140 mmol/L (135-145); Total Protein 7.3 g/dL (6.5-8.0)
[2022-02-27 19:37] LABS: B Type Natriuretic Peptide 16 pg/mL (<100)
[2022-02-27 19:40] LABS: Troponin-I High Sensitivity < 3.5 ng/L (<3.5-17.0)
[2022-02-27 22:44] VITALS: BP 134/61; PULSE 75; RESP 16; TEMP 36.7
[2022-02-27 23:02] LABS: D Dimer High Sensitivity < 150 NG/ML
[2022-02-27 23:19] LABS: Troponin-I High Sensitivity < 3.5 ng/L (<3.5-17.0)
[2022-02-28 00:18] VITALS: PULSE 59
[2022-02-28 00:20] VITALS: BP 130/62; PULSE 68; RESP 18; O2SAT 98
== END 2022-02-28 00:21 | disposition home or self-care (01) ==
PROVIDERS: Emergency Medicine Emergency Medical Services; Emergency Provider Internal Medicine; PCP Internal Medicine
DX: R07.89 Other chest pain (principal); R00.2 Palpitations; R06.02 Shortness of breath; Z79.899 Other long term (current) drug therapy
CPT/HCPCS: 36415; 71045; 80048; 80076; 83690; 83880; 84484; 85025; 85379; 93005; 99284; 99285

== ENCOUNTER 2022-04-11 09:05 | Outpatient (REF) | payer OTHER, SELFPAY ==
[2022-04-11 13:32] LABS: CDiff Gene PCR NEGATIVE (Negative)
[2022-04-11 14:38] LABS: Campylobacter Not Detected (Not Detect.); E. coli EAEC Not Detected (Not Detect.); E. coli EPEC Not Detected (Not Detect.); E. coli ETEC Not Detected (Not Detect.); E. coli STEC Not Detected (Not Detect.); Plesiomonas shigelloides Not Detected (Not Detect.); Salmonella Not Detected (Not Detect.); Vibrio Not Detected (Not Detect.); Vibrio Cholerae Not Detected (Not Detect.); Yersinia enterocolitica Not Detected (Not Detect.)
[2022-04-11 14:39] LABS: Adenovirus F 40/41 Not Detected (Not Detect.); Astrovirus Not Detected (Not Detect.); Cryptosporidium Not Detected (Not Detect.); Cyclospora cayetanensis Not Detected (Not Detect.); Entamoeba histolytica Not Detected (Not Detect.); Giardia lamblia Not Detected (Not Detect.); Norovirus GI/GII Not Detected (Not Detect.); Rotavirus A Not Detected (Not Detect.); Sapovirus Not Detected (Not Detect.); Shigella sp./EIEC Not Detected (Not Detect.)
[2022-04-20 17:17] LABS: Pancreatic Elastase-1 >500 mcg/g
== END 2022-04-11 09:06 | disposition home or self-care (01) ==
LOC: HO.HMGCLNP 09:05
PROVIDERS: Visit Provider Nurse Practitioner Family
DX: R10.9 Unspecified abdominal pain (principal); R19.7 Diarrhea, unspecified
CPT/HCPCS: 82656; 87493; 87507

== ENCOUNTER 2023-01-08 10:29 | Outpatient (AMB) | payer OTHER, SELFPAY ==
--- NOTE | 2023-01-08 10:39 | A.OFFVIS_ITS ---
Intake Vital Signs 01/08/23 10:41 Height 5 ft 3 in Weight 224 lb 13.944 oz BMI 39.8 BP 132/66 Blood Pressure Location Lt brachial Position Sitting Pulse 65 Intake Visit Reasons: follow up PT cancelled Mar appt Intake Note: Aura presents in the office as a follow up. CC: She states that his is just a follow up - she is having nausea and severe constipation. She wanted to touch base on the colonoscopy as well. Allergies No Known Allergies Allergy (Verified 01/09/23 14:17) HPI follow up PT cancelled Mar appt HPI Details LAST VISIT: Diarrhea Patient reports to have loose stools almost every day. Patient does report that her stools is foul smelling. We will order GI panel, C diff. Patient was encouraged to start taking Citrucel to help her bulk to stools. Patient also reports that she has been eating potato chips. Discussed with patient that after cholecystectomy she would expect loose stools depending on what she eats. Discussed with patient in eating food that is low fat Abdominal bloating Patient reports postprandial abdominal bloating. Discussed with patient food choices. Patient was encouraged to eat more often and not just once a day. Patient does admit to eating junk food. Mainly chips and soda. FODMAP diet discussed with patient again. List of food recommended as well as list of food to avoid given to patient. Will rule out pancreatic insufficiency. I will see patient in 2 months, sooner on as needed basis. Patient is agreeable to this plan and verbalizes understanding of instructions. She was given the opportunity to ask questions all questions answered. ? Thank you for allowing me to participate in her care Plan Orders Orders Pancreatic Elastase-1 Today R10.9 CDiff Gene PCR Today R19.7 GI Panel Today R19.7 Medications Discontinued methylcellulose (laxative) (Citrucel) Discontinued Reason: Patient no longer taking 500 mg PO DAILY 90 tabs 2RF K59.00 docusate sodium Discontinued Reason: Doctor's Order 100 mg PO BEDTIME 90 caps 4RF K59.00 sucralfate Discontinued Reason: Patient no longer taking 10 mL PO BEDTIME 400 mL 6RF K21.9 omeprazole Discontinued Reason: Patient no longer taking 20 mg PO BID 30 days 60 caps 3RF TODAY'S VISIT Patient is here today for follow-up. Patient reports that she stopped taking PPI, Colace and Citrucel. Patient reports that she has been having postprandial epigastric discomfort. Patient reports that she is bloated with a was anything that she eats. Patient also reports to be very constipated. Reports occasional abdominal cramping. Patient had colonoscopy in December of 2020 and recommendation was made for colonoscopy to be repeated in December of 2025, due to tubular adenoma found. Patient denies any melena, hematochezia, unintentional weight loss or ribbon like stools. Occasional dyspepsia without dysphagia or odynophagia. Patient denies any nausea or vomiting. Denies any other GI concerning symptoms. COUNTS INCLUDE 234 BEDS AT THE [facility] Medical History Peroneal tendonitis of left lower extremity Anxiety Pruritus History of palpitations Abdominal pain Tinnitus H. 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, Housing: House Are you a primary manager of care to a significant other at home: No Do you presently have visiting nurse or other home services: No Alcohol intake: current Alcohol intake frequency: does not drink Patient Tobacco Use Status: Never used Tobacco e-Cigarette/Vaping Use: Never Used Current occupational status: 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 Cognitive needs: No Hearing needs: No Vision needs: Yes Review of Systems Const Denies weight gain and Denies weight loss ENT Reports no additional complaints, Denies dysphagia and Denies odynophagia Card Reports other (Palpitations) Resp Reports no additional complaints GI Reports abdominal pain (Epigastric), Denies belching, Denies melena, Reports bloating, Denies change in bowel habits, Reports constipation, Denies dysphagia, Denies excessive flatus, Denies dyspepsia, Reports heartburn, Denies diarrhea, Denies loose stools, Denies nausea, Denies odynophagia and Denies vomiting Reports no additional complaints Musc Reports no additional complaints Neuro Reports no additional complaints Psych Reports no additional complaints Endo Reports no additional complaints Physical Exam Vital Signs: Last Vital Signs Pulse 65 01/08/23 10:41 BP 132/66 01/08/23 10:41 BMI result Body Mass Index 39.8 Const General: healthy appearing, no acute distress and well developed Nutritional Appearance: obese Orientation/consciousness: patient oriented x3 HEENT Head: Yes normal to inspection, Yes normocephalic and Yes atraumatic Face and sinus: Yes normal facial exam Mouth: Normal oral and palatal mucosa present Throat: Yes posterior oropharynx normal, Yes tonsils normal and Yes uvula midline Eyes General: appearance normal, both eyes and all related structures Neck Neck: Yes normal visual inspection, Yes full ROM and Yes trachea midline Thyroid: Thyroid normal Resp Effort & Inspection: normal respiratory effort, able to speak in complete sentences, no tracheal deviation and symmetric chest movement Auscultation: clear to auscultation bilaterally Cardio Rate: regular rate Heart sounds: S1 normal heart sound present and S2 normal heart sound present GI Inspection: Yes normal to inspection, No distended and Yes obesity Palpation (GI): Soft to palpation, not firm, nontender and No hepatosplenomegaly present Auscultation: normal bowel sounds General: Yes no CVA tenderness Back/Spine/Pelvis Back: no CVA tenderness Skin General skin exam: elasticity normal, turgor normal and dry skin Neuro General: patient oriented x3 Psych Appearance: grossly normal Mental Status: mental status grossly normal Assessment & Plan Assessment & Plan (1) GERD (gastroesophageal reflux disease): Code(s): K21.9 - Gastro-esophageal reflux disease without esophagitis Qualifiers: Esophagitis presence: esophagitis presence not specified Qualified Code(s): K21.9 - Gastro-esophageal reflux disease without esophagitis (2) Tachycardia: Code(s): R00.0 - Tachycardia, unspecified (3) Palpitations: Code(s): R00.2 - Palpitations (4) IBS (irritable bowel syndrome): Code(s): K58.9 - Irritable bowel syndrome without diarrhea Qualifiers: Irritable bowel syndrome type: with constipation Qualified Code(s): K58.1 - Irritable bowel syndrome with constipation (5) Chronic idiopathic constipation: Code(s): K59.04 - Chronic idiopathic constipation Plan Patient will start taking Nexium every morning half an hour before breakfast. Patient can take Colace in the evening to help her move her bowels. Patient was encouraged to increase fluid intake and activity to promote better bowel motility. Patient was encouraged to avoid dietary triggers and late night snacking. Staying upright for minimum 3 hours after meals discussed with patient. Patient does report to have palpitations. Patient would like to see placing judge. Patient denies any chest pain or shortness of breath with activities. I will see patient in 6 months, sooner on as needed basis. Patient is agreeable to this plan and verbalizes understanding of instructions. She was given the opportunity to ask questions and all questions answered. Thank you for allowing me to participate in her care Orders: Referrals Cardiology Referral R00.0 - Tachycardia, unspecified, R00.2 - Palpitations Medications: New esomeprazole magnesium (Nexium) 40 mg PO DAILY 30 caps 5RF K21.9 - Gastro- esophageal reflux disease without esophagitis docusate sodium 100 mg PO BEDTIME 90 caps 3RF K59.00 - Constipation, unspecified Coding Level of Care Code Est Pt Level 4 (92525) Diagnoses Gastroesophageal reflux disease, unspecified whether esophagitis present K21.9 Esophagitis presence: esophagitis presence not specified Tachycardia R00.0 Palpitations R00.2 Irritable bowel syndrome with constipation K58.1 Irritable bowel syndrome type: with constipation Chronic idiopathic constipation K59.04 Time Spent (min) 35 Comment 25 minutes spent with patient and additional 10 minutes spent reviewing her records
[2023-01-08 10:41] VITALS: BP 132/66; PULSE 65; BMI 39.8
== END 2023-01-08 11:22 | disposition home or self-care (01) ==
PROVIDERS: PCP Internal Medicine; Visit Provider Nurse Practitioner Family
DX: K21.9 Gastro-esophageal reflux disease without esophagitis (principal); R00.0 Tachycardia, unspecified; R00.2 Palpitations; K58.1 Irritable bowel syndrome with constipation; K59.04 Chronic idiopathic constipation
CPT/HCPCS: 99214

== ENCOUNTER → 2023-01-08 10:29 | Outpatient (BNVA) | payer OTHER, SELFPAY | PROVIDERS: PCP Internal Medicine; Visit Provider Nurse Practitioner Family ==

== ENCOUNTER 2023-01-09 14:03 | Outpatient (AMB) | payer OTHER, SELFPAY ==
[2023-01-09 14:10] VITALS: BP 108/66; PULSE 72; O2SAT 96; BMI 39.3
--- NOTE | 2023-01-09 14:10 | A.OFFPC_ITS ---
Vital Signs 01/09/23 14:10 Height 5 ft 3 in Weight 222 lb BMI 39.3 BP 108/66 Blood Pressure Location Lt brachial Position Sitting Pulse 72 Pulse Source Pulse Oximeter Pulse Oximetry (%) 96 Oxygen Delivery Method Room Air Intake Visit Reasons: LT Heel Pain Intake Note: Pt is here today for a sick visit. Pt c/o L heel pain and burning sensation for last 2 months. Allergies No Known Allergies Allergy (Verified 01/09/23 14:17) Medication List - Last Reconciled 01/09/23 by Raisa Giraldo MD docusate sodium 100 mg PO BEDTIME esomeprazole magnesium (Nexium) 40 mg PO DAILY meloxicam 15 mg PO DAILY Tobacco use date assessed: 01/09/23 Dental Screening Dental Screen Date: 01/09/23 Did you have a dental visit in the last 12 months?: Yes Did you have a dental problem in the last 6 months where you did not have access to dental care?: No Was dental information given to patient?: Patient has dentist HPI LT Heel Pain HPI Details Patient complains of left heel pain for 2 months worse when starting to walk or walking for long time. 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 She denies any injury. Patient reports her is in the hospital with complications of diabetes. [facility] Medical History Peroneal tendonitis of left lower extremity Anxiety Pruritus History of palpitations Abdominal pain Tinnitus H. 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 1. Little interest or pleasure in doing things: not at all 2. Feeling down, depressed, or hopeless: not at all 3. Trouble falling or staying asleep, or sleeping too much: not at all 4. Feeling tired or having little energy: not at all 5. Poor appetite or overeating: not at all 6. Feeling bad about yourself - or that you are a failure or have let yourself or your family down: not at all 7. Trouble concentrating on things, such as reading the newspaper or watching television: not at all 8. Moving or speaking so slowly that other people could have noticed. Or the opposite - being so fidgety or restless that you have been moving around a lot more than usual: not at all 9. Thoughts that you would be better off or of hurting yourself in some way: not at all Total score: 0 Depression Screening Interpretation: Negative Depression Screening Done: Yes Source: Developed by Drs. John Maguire, Dorinda Duran, Brent Shepard and colleagues, with an educational helen from [employer]. Thrive Questionnaire Date Thrive assessed: 01/09/23 I am a: Patient What is your living situation today?: I have a steady place to live Within the past 12 months, did the food you bought not last and you didn't have the money to get more?: Never true Within the past 12 months, did you worry whether your food would run out before you got money to buy more?: Never true Do you have trouble paying for medicines?: No Do you have trouble getting transportation to medical appointments?: No Do you have trouble paying your heating and electricity bill?: No Do you have trouble taking care of your child, family member or friend?: No Do you have trouble with day-to-day activities such as bathing, preparing meals, shopping, managing finances, etc.?: No Are you currently unemployed and looking for a job?: No Are you interested in more education?: No Please select the resources that you would like help with: None Currently or been in a relationship where the following occur: no concerns reported AUDIT C Alcohol Use Questionnaire (AUDIT-C) 1. How often do you have a drink containing alcohol?: Never 3. How often do you have six or more drinks on one occasion?: Never Total Score: 0 ABDOULAYE-7 AMB Questionnaire ABDOULAYE-7 Date ABDOULAYE - 7 assessed: 01/09/23 Feeling nervous, anxious, or on edge: 0 = Not at all Not being able to stop or control worryin = Not at all Worrying too much about different things: 0 = Not at all Trouble relaxin = Not at all Being so restless that it is hard to sit still: 0 = Not at all Becoming easily annoyed or irritable: 0 = Not at all Feeling afraid as if something awful might happen: 0 = Not at all Total ABDOULAYE-7 score (0-4 normal; 5-9 mild; 10-14 moderate; 15-21 severe): 0 Source: Developed by Drs. John Maguire, Dorinda Duran, Brent Shepard and colleagues, with an educational helen from [employer]. Review of Systems Const All systems reviewed & are unremarkable except as noted in HPI and below Reports no additional complaints Eyes Reports no additional complaints ENT Reports no additional complaints Card Reports no additional complaints Resp Reports no additional complaints GI Reports no additional complaints Reports no additional complaints Physical exam (Primary Care) Vital Signs: Last Vital Signs Pulse 72 01/09/23 14:10 BP 108/66 01/09/23 14:10 Pulse Ox 96 01/09/23 14:10 Oxygen Delivery Method Room Air 01/09/23 14:10 BMI result Body Mass Index 39.3 Tobacco/Smoking Status: Tobacco use Status Tobacco use date assessed 01/09/23 01/09/23 14:21 Patient Tobacco Use Status Never used Tobacco 01/09/23 14:21 e-Cigarette/Vaping Use Never Used 01/09/23 14:15 PHQ-9: PHQ-9 Score PHQ-9: Total score 0 01/09/23 14:21 Depression Screening Interpretation: Negative Thrive Assessment: Date of Thrive Assessment Date Thrive assessed 01/09/23 01/09/23 14:21 Currently or been in a relationship where the following occur: no concerns reported Resp Effort & Inspection: normal respiratory effort Auscultation: clear to auscultation bilaterally Cardio Rhythm: regular rhythm Heart sounds: S1 normal heart sound present and S2 normal heart sound present Extrem Other: Reproducible tenderness over left heel no soft tissue swelling erythema or warmth Assessment and Plan Assessment & Plan (1) Annual physical exam: Code(s): Z00.00 - Encounter for general adult medical examination without abnormal findings Plan: Patient will schedule physical and have a fasting blood work before (2) Plantar fasciitis of left foot: Code(s): M72.2 - Plantar fascial fibromatosis Plan: Patient was given stretching exercises, was advised to use shoe inserts and meloxicam is prescribed Orders: Orders Comprehensive [place]. Panel Fast Today Z00.00 - Encounter for general adult medical examination without abnormal findings TSH reflex Free T4 Today Z00.00 - Encounter for general adult medical examination without abnormal findings Complete Blood Count Auto Diff Today Z00.00 - Encounter for general adult me dical examination without abnormal findings Lipid Panel Today Z00.00 - Encounter for general adult medical examination without abnormal findings Medications: New meloxicam 15 mg PO DAILY 20 tabs 0RF Coding Level of Care Code Est Pt Level 3 (88109) Diagnoses Annual physical exam Z00.00 Plantar fasciitis of left foot M72.2
== END 2023-01-09 15:04 | disposition home or self-care (01) ==
PROVIDERS: PCP Internal Medicine; Visit Provider Internal Medicine
DX: M72.2 Plantar fascial fibromatosis (principal)
CPT/HCPCS: 99213

== ENCOUNTER 2023-02-12 09:00 | Outpatient (AMB) | payer OTHER, SELFPAY ==
[2023-02-12 09:09] VITALS: BP 140/70; PULSE 69; BMI 39.4
--- NOTE | 2023-02-12 09:09 | A.OFFVIS_ITS ---
Intake Vital Signs 02/12/23 09:09 Height 5 ft 3 in Weight 222 lb 10.67 oz BMI 39.4 BP 140/70 H Blood Pressure Location Lt brachial Position Sitting Pulse 69 Intake Visit Reasons: Follow up/Per Bobbi/tachycardia, palpitations Intake Note: follow up w/ EKG Ladle Watcher Required: No Accompanied by: Self / Same As Patient Allergies No Known Allergies Allergy (Verified 02/12/23 09:11) Medication List - Last Reconciled 02/12/23 by Valente Rivera MD docusate sodium 100 mg PO BEDTIME esomeprazole magnesium (Nexium) 40 mg PO DAILY meloxicam 15 mg PO DAILY HPI HPI Comments History of Present Illness Details Aura is here for consultation regarding palpitations. She states that she gets occasional palpitations. They last for a few seconds or so time and then resolved completely. Nothing persistent or prolonged. Some days, when she is walking she feels as though she is unsteady. However, no presyncope or syncopal episodes. No anginal-type chest pains or shortness of breath. No history of any coronary disease or myocardial infarction or cardiomyopathy. No major comorbidities. [facility] Medical History Peroneal tendonitis of left lower extremity Anxiety Pruritus History of palpitations Abdominal pain Tinnitus H. 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: House Are you a primary insurance healthcare consultant to a significant other at home: No Do you presently have visiting nurse or other home services: No Alcohol intake: current Alcohol intake frequency: does not drink Patient Tobacco Use Status: Never used Tobacco e-Cigarette/Vaping Use: Never Used Current occupational status: 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 Cognitive needs: No Hearing needs: No Vision needs: Yes Review of Systems Const All systems reviewed & are unremarkable except as noted in HPI and below Reports as per HPI and Reports no additional complaints Eyes Reports as per HPI and Denies no additional complaints ENT Denies no additional complaints and Reports as per HPI Card Reports as per HPI, Reports no additional complaints, Denies acrocyanosis, Denies chest pain, Denies leg edema, Denies lightheadedness, Reports palpitations and Denies dyspnea Resp Reports as per HPI, Denies no additional complaints and Denies dyspnea GI Reports as per HPI and Denies no additional complaints Reports as per HPI Musc Reports no additional complaints and Reports as per HPI Skin/Breast Reports system reviewed and no additional complaints, except as documented Neuro Reports no additional complaints and Reports as per HPI Psych Reports no additional complaints and Reports as per HPI Endo Reports no additional complaints, Reports as per HPI and Reports palpitations Dylan/Lymph Reports no additional complaints and Reports as per HPI Aller/Immun Reports no additional complaints and Reports as per HPI Physical Exam Vital Signs: Last Vital Signs Pulse 69 02/12/23 09:09 BP 140/70 H 02/12/23 09:09 BMI result Body Mass Index 39.4 Const General: comfortable and no acute distress Orientation/consciousness: patient oriented x3 HEENT Other: Unremarkable Head: Yes normal to inspection Neck Neck: Yes normal visual inspection Chest Chest palpation & inspection: normal inspection of the chest Resp Auscultation: clear to auscultation bilaterally Cardio Palpation: normal PMI Heart sounds: S1 normal heart sound present, S2 normal heart sound present, no gallops, no murmurs and no rubs GI Palpation (GI): Soft to palpation Back/Spine/Pelvis Other: unremarkable Skin General skin exam: no rashes or lesions noted Neuro General: patient oriented x3 Extrem General: Yes normal to inspection Psych Mental Status: mental status grossly normal Office Procedures EKG Details: EKG with sinus rhythm at 69/Min; no significant ST-T changes and otherwise [place]remarkable[place] [id number], Complete Assessment & Plan Assessment & Plan (1) Palpitations: Code(s): R00.2 - Palpitations Plan: Echocardiogram from 2020 with normal LVEF at 60-65% and otherwise unremarkable. Baseline EKG is unremarkable. Rhythm strips that are scanned are also showing sinus rhythm only. Available high sensitivity troponins are also within normal limits. Overall, occasional palpitations that she describes could either be from supraventricular/ventricular ectopy or from anxiety. Suspect latter more than anything else. We discussed about doing a Holter monitor; however, patient felt that she would rather just watch how things go. If it gets worse, she will contact us for testing, but otherwise mainly reassurance. She is agreeable with this plan. Coding Level of Care Code Est Pt Level 3 (17959) Diagnoses Palpitations R00.2 CPT Codes EKG - CPT: 77900-[id number], Complete ([id number])
== END 2023-02-12 09:24 | disposition home or self-care (01) ==
PROVIDERS: PCP Internal Medicine; Visit Provider Internal Medicine
DX: R00.2 Palpitations (principal)
CPT/HCPCS: 93010; 99213

== ENCOUNTER → 2023-02-12 09:00 | Outpatient (BNVA) | payer OTHER, SELFPAY | PROVIDERS: PCP Internal Medicine; Visit Provider Internal Medicine | DX: R00.2 Palpitations (principal) | CPT/HCPCS: 93005 ==

== ENCOUNTER 2023-04-24 08:35 | Outpatient (AMB) | payer OTHER, SELFPAY ==
[2023-04-24 09:06] VITALS: BP 114/70; PULSE 69; TEMP 36.6; O2SAT 96; BMI 41.3
--- NOTE | 2023-04-24 09:06 | MHC.OFFWIV ---
Intake Vital Signs 04/24/23 09:06 Height 5 ft 3 in Weight 233 lb BMI 41.3 BP 114/70 Blood Pressure Location Lt brachial Position Sitting Pulse 69 Pulse Source Pulse Oximeter Temp 97.8 F Temp Source Temporal Artery Scan Pulse Oximetry (%) 96 Oxygen Delivery Method Room Air Intake Visit Reasons: EP Knee/heel pain Intake Note: pt is here today for knee and heel pain started 2 weeks Patient Tobacco Use Status: Never used Tobacco Allergies No Known Allergies Allergy (Verified 04/24/23 09:06) Do you need a note to return to daycare/school/sports/work: No HPI HPI Comments History of Present Illness Details 53 y/o female presents to walk in clinic with c/o left knee and heel pain. This is a chronic issue. Saw Ortho and recomm PT. Patient reports that she never had Physical Therapy. 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 [facility] Medical History Peroneal tendonitis of left lower extremity Anxiety Pruritus History of palpitations Abdominal pain Tinnitus H. 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, Housing: House Are you a primary wild animal caretaker to a significant other at home: No Do you presently have visiting nurse or other home services: No Alcohol intake: current Alcohol intake frequency: does not drink Patient Tobacco Use Status: Never used Tobacco e-Cigarette/Vaping Use: Never Used Current occupational status: 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 Cognitive needs: No Hearing needs: No Vision needs: Yes Physical Exam Vital Signs: Last Vital Signs Temp 97.8 F 04/24/23 09:06 Pulse 69 04/24/23 09:06 BP 114/70 04/24/23 09:06 Pulse Ox 96 04/24/23 09:06 Oxygen Delivery Method Room Air 04/24/23 09:06 BMI result Body Mass Index 41.3 Const General: no acute distress Nutritional Appearance: obese Orientation/consciousness: patient oriented x3 Neuro General: patient oriented x3 Motor exam (neuro): 5/5 motor strength present throughout Extrem General: Yes normal to inspection and Yes full ROM Right upper extremity: edema and no joint enlargement Left upper extremity: normal to inspection, full ROM, edema and no joint enlargement Right lower extremity: normal to inspection, full ROM, no joint enlargement and knee Details: normal to inspection and normal ROM; no tenderness and no swelling Left lower extremity: normal to inspection, full ROM, no joint enlargement and knee Details: normal to inspection and normal ROM; no tenderness and no swelling Assessment & Plan Assessment & Plan (1) Plantar fasciitis of left foot: Comment: - Rest the joints - Warm compress - Acetaminophen for pain relief - Rec Ref to Ortho for PT - Rec comfortable shoes Code(s): M72.2 - Plantar fascial fibromatosis Plan: - Rest the joints - Warm compress - Acetaminophen for pain relief - Rec Ref to Ortho for PT - Rec comfortable shoes Plan - Rest the joints - Warm compress - Acetaminophen for pain relief - Rec Ref to Ortho for PT - Rec comfortable shoes Medications: New acetaminophen 1,000 mg (2 x 500 mg) PO Q6H PRN 30 caps 0RF Joint pain M72.2 - Plantar fascial fibromatosis diclofenac sodium 1% APPLY TO THE AFFECTED JOINTS PRN FOR PAIN 2 grams topical QID 100 grams 0RF M72.2 - Plantar fascial fibromatosis Coding Level of Care Code Est Pt Level 3 (58277) Diagnoses Plantar fasciitis of left foot M72.2 Time Spent (min) 15
== END 2023-04-24 11:11 | disposition home or self-care (01) ==
PROVIDERS: PCP Internal Medicine; Visit Provider Nurse Practitioner Family
DX: M72.2 Plantar fascial fibromatosis (principal)
CPT/HCPCS: 99213

== ENCOUNTER 2023-05-18 20:34 | Emergency (ER) | payer OTHER, SELFPAY ==
--- NOTE | ~2023-05-18 | US_ITS ---
EXAMINATION: US VENOUS ULTRASOUND WITH DOPPLER LOWER EXTREMITY, LEFT CLINICAL INFORMATION: Evaluate for DVT COMPARISON: None available. TECHNIQUE: Ultrasound of the deep veins is performed from the hip to the calf with compression sonography and color and pulse Doppler assessment. Spectral analysis with color-flow imaging is performed. FINDINGS: There is normal venous compression and respiratory variation and augmented flow. The visualized common femoral vein, superficial femoral vein, profunda femoral vein, popliteal vein, and the trifurcation region shows no evidence of deep venous thrombosis. There is no significant popliteal fossa cyst. Contralateral common femoral vein is patent. If the patient's symptoms persist, followup ultrasound in 5 days 7 days might be of value to exclude proximal propagation from a non-visualized calf vein. US/US venous duplex LE LT IMPRESSION: No DVT demonstrated in the left lower extremity.
--- NOTE | ~2023-05-18 | XR_ITS ---
EXAMINATION: XR KNEE, LEFT CLINICAL INFORMATION: Pain and swelling no trauma COMPARISON: None available. TECHNIQUE: Four views of the left knee. FINDINGS: No acute visible fracture or dislocation. Mild multicompartment arthritic changes. Joint space alignment are maintained. Small knee joint effusion. Soft tissues are unremarkable. XR/XR knee LT 2V IMPRESSION: 1. No acute visible fracture or dislocation. 2. Mild multicompartment arthritic changes. 3. Small knee joint effusion.
[2023-05-18 20:40] VITALS: BP 119/100; PULSE 80; RESP 18; TEMP 36.1; O2SAT 99; BMI 39.7
--- NOTE | 2023-05-18 21:56 | ED.GENADULT ---
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 She saw her doctor who ?gave me some cream. She denies any specific injury. She has not yet had any imaging of her leg. She states that today she started have pain in her left calf and behind the left knee so she was concerned for a DVT She denies any history of DVT or risk factors for DVT Related Data Previous Rx's Medication Instructions Recorded docusate sodium 100 mg capsule 100 mg PO BEDTIME #90 caps 01/08/23 esomeprazole magnesium 40 mg 40 mg PO DAILY #30 caps 01/08/23 capsule,delayed release (Nexium) meloxicam 15 mg tablet 15 mg PO DAILY #20 tabs 01/09/23 acetaminophen 500 mg capsule 1,000 mg (2 x 500 mg) PO Q6H PRN 04/24/23 Joint pain #30 caps diclofenac sodium 1 % topical gel 2 g topical QID #100 grams 04/24/23 Allergies Allergy/AdvReac Type Severity Reaction Status Date / Time No Known Allergies Allergy Verified 05/18/23 20:40 Review of Systems Constitutional: Constitutional: Denies chills and Denies fever(s) Eyes: Eyes: Denies blurry vision ENT: Denies sore throat Cardiovascular: Cardiovascular: Denies chest pain and Denies dyspnea Respiratory: Respiratory: Denies cough and Denies dyspnea Musculoskeletal: Musculoskeletal: Reports arthralgias (Left knee pain) [facility] Past Medical History Medical History Peroneal tendonitis of left lower extremity Anxiety Pruritus History of palpitations Abdominal pain Tinnitus H. 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 Cognitive needs: No Hearing needs: No Vision needs: Yes Physical Exam ED Vital Signs: Vital Signs - 24 hr 05/18/23 20:40 05/18/23 22:13 Temperature 96.9 F 97.9 F Pulse Rate 80 72 Respiratory Rate 18 16 Blood Pressure 119/100 H 129/72 Pulse Oximetry 99 97 Oxygen Delivery Method Room Air Room Air BMI result Body Mass Index 39.7 Const General: healthy appearing, comfortable, no acute distress, alert and awake Nutritional Appearance: well nourished Orientation/consciousness: patient oriented x3 HENMT Head: Yes normocephalic and Yes atraumatic Throat: Yes posterior oropharynx normal Eyes Eyelids: Yes eyelids normal Conjunctivae: conjunctivae normal Sclerae: sclerae normal Corneas: corneas normal Pupils: Equal, round and reactive pupils present EOM: EOMs intact bilaterally Neck Neck: Yes full ROM Resp Effort & Inspection: normal respiratory effort, able to speak in complete sentences and not labored Cardio Rate: regular rate Rhythm: regular rhythm Skin General skin exam: elasticity normal Neuro General: patient oriented x3 Cranial nerves: Yes Equal, round and reactive pupils present and Yes Bilaterally intact EOM present Cognition (Neuro): normal cognition Extrem Other: No significant deformity to the left lower extremity. Patient is able to flex and extend the knee without any difficulty. She does have some tenderness to the left popliteal fossa region as well as the left upper calf. Negative Homans sign, negative Hernandez test Medical Decision Making Medical Decision Making MDM Narrative: 53-year-old female presents for evaluation of left lower extremity pain, atraumatic. Plan for x-ray left knee and ultrasound of the left lower extremity to rule out DVT. Differential Diagnosis Differential Diagnoses: The differential diagnosis associated with the presentation includes Left leg pain DVT Muscle strain Kenyon's cyst Radiology Impression Discussion of test interpretation with radiology: I have reviewed the radiologist's reading. (Negative for DVT) Discharge Plan Discharge Clinical Impression: Left leg pain Patient Disposition: Home, Self-Care Instructions: Leg Pain (ED) Additional Instructions: Your ultrasound was negative for blood clots in your legs/DVT You may continue to use Tylenol for pain Follow-up with your primary doctor Return for new or worsening symptoms Prescriptions: No Action meloxicam 15 mg tablet 15 mg PO DAILY Qty: 20 0RF acetaminophen 500 mg capsule 1,000 mg PO Q6H PRN (Reason: Joint pain) Qty: 30 0RF diclofenac sodium 1 % gel 2 g topical QID Qty: 100 0RF Rx Instructions: APPLY TO THE AFFECTED JOINTS PRN FOR PAIN docusate sodium 100 mg capsule 100 mg PO BEDTIME Qty: 90 3RF esomeprazole magnesium [Nexium] 40 mg capsule,delayed release(DR/EC) 40 mg PO DAILY Qty: 30 5RF
[2023-05-18 22:13] VITALS: BP 129/72; PULSE 72; RESP 16; TEMP 36.6; O2SAT 97
== END 2023-05-18 22:41 | disposition home or self-care (01) ==
PROVIDERS: Emergency Provider Emergency Medicine; PCP Internal Medicine
DX: M79.605 Pain in left leg (principal); R60.0 Localized edema; Z79.899 Other long term (current) drug therapy
CPT/HCPCS: 73560; 93971; 99283; 99284

== ENCOUNTER 2023-08-21 08:01 | Outpatient (AMB) | payer OTHER, SELFPAY ==
--- NOTE | 2023-08-21 08:35 | AM.OFFWIN_ITS ---
Intake Vital Signs 08/21/23 08:36 Height 5 ft 3 in Weight 224 lb BMI 39.7 BP 120/74 Blood Pressure Location Lt brachial Position Sitting Pulse 74 Pulse Source Pulse Oximeter Temp 97.9 F Temp Source Temporal Artery Scan Pulse Oximetry (%) 98 Oxygen Delivery Method Room Air Intake Visit Reasons: EST/ left leg swelling (lobby) Intake Note: pt is here today for lft leg swelling started 1 week ago Patient Tobacco Use Status: Never used Tobacco Allergies No Known Allergies Allergy (Verified 08/21/23 08:42) Do you need a note to return to daycare/school/sports/work: No HPI HPI Comments History of Present Illness Details 53 y/o female patient who presents to [facility] in clinic with c/o bilateral leg swelling. Pt reports left leg more swollen than right lower leg. She was evaluated in ED back in Apr 2023, DVT was r/o by U/S. Pt denies any SOB, Wheezing, CP or Cough. [facility] Medical History Peroneal tendonitis of left lower extremity Anxiety Pruritus History of palpitations Abdominal pain Tinnitus H. 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, Housing: House Are you a primary primary care sales representative to a significant other at home: No Do you presently have visiting nurse or other home services: No Alcohol intake: current Alcohol intake frequency: does not drink Patient Tobacco Use Status: Never used Tobacco e-Cigarette/Vaping Use: Never Used Current occupational status: 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 Cognitive needs: No Hearing needs: No Vision needs: Yes Review of Systems Const All systems reviewed & are unremarkable except as noted in HPI and below Physical Exam Vital Signs: Last Vital Signs Temp 97.9 F 08/21/23 08:36 Pulse 74 08/21/23 08:36 BP 120/74 08/21/23 08:36 Pulse Ox 98 08/21/23 08:36 Oxygen Delivery Method Room Air 08/21/23 08:36 BMI result Body Mass Index 39.7 Const General: comfortable and no acute distress Nutritional Appearance: obese Orientation/consciousness: patient oriented x3 Resp Effort & Inspection: normal respiratory effort Auscultation: clear to auscultation bilaterally Cardio Rate: regular rate Rhythm: regular rhythm Neuro General: patient oriented x3, gait normal and moves all extremities Extrem Right lower extremity: edema and lower leg Details: non-pitting edema; no erythema and no tenderness Left lower extremity: edema and lower leg Details: non-pitting edema; no erythema, no tenderness and no crepitus Psych Speech and movement: Normal speech and movement present Assessment & Plan Assessment & Plan (1) Peripheral edema: Code(s): R60.0 - Localized edema Plan: - DASH, avoid processed foods - Avoid Sodium - Weight loss - Recomm Compression stockings. Medications: New furosemide 20 mg PO DAILY 14 tabs 0RF R60.0 - Localized edema Coding Level of Care Code Est Pt Level 3 (08198) Diagnoses Peripheral edema R60.0 Time Spent (min) 15
[2023-08-21 08:36] VITALS: BP 120/74; PULSE 74; TEMP 36.6; O2SAT 98; BMI 39.7
== END 2023-08-21 10:05 | disposition home or self-care (01) ==
PROVIDERS: PCP Internal Medicine; Visit Provider Nurse Practitioner Family
DX: R60.0 Localized edema (principal)
CPT/HCPCS: 99213

== ENCOUNTER 2023-08-21 09:23 | Outpatient (AMB) | payer OTHER, SELFPAY ==
--- NOTE | 2023-08-21 09:25 | MHC.OFFVIS ---
Vital Signs 08/21/23 09:26 Height 5 ft 3 in Weight 223 lb 15.834 oz BMI 39.7 BP 138/67 Blood Pressure Location Lt brachial Position Sitting Pulse 67 Pulse Oximetry (%) 98 Intake Visit Reasons: 6 mnth follow up Intake Note: Aura presents in the office as a 6 month follow up. CC: She states that it is just a routine follow up. Her stomach is doing okay! Instructional Services Librarian Required: No Allergies No Known Allergies Allergy (Verified 08/21/23 09:27) HPI HPI 6 mnth follow up: Details: LAST VISIT: GERD (gastroesophageal reflux disease) Tachycardia Palpitations IBS (irritable bowel syndrome) Chronic idiopathic constipation Plan Patient will start taking Nexium every morning half an hour before breakfast. Patient can take Colace in the evening to help her move her bowels. Patient was encouraged to increase fluid intake and activity to promote better bowel motility. Patient was encouraged to avoid dietary triggers and late night snacking. Staying upright for minimum 3 hours after meals discussed with patient. Patient does report to have palpitations. Patient would like to see deputy chief sheriff. Patient denies any chest pain or shortness of breath with activities. I will see patient in 6 months, sooner on as needed basis. Patient is agreeable to this plan and verbalizes understanding of instructions. She was given the opportunity to ask questions and all questions answered. ? Thank you for allowing me to participate in her care Orders Referrals Cardiology Referral R00.0, R00.2 Medications New esomeprazole magnesium (Nexium) 40 mg PO DAILY 30 caps 5RF K21.9 docusate sodium 100 mg PO BEDTIME 90 caps 3RF K59.00 TODAY'S VISIT Patient is here today for follow-up. Patient reports that she has been using Nexium and her symptoms of are severe reflux are suppressed for the most part. Occasional diarrhea then constipation. Occasional abdominal bloating. Patient admits to be snacking and eating sweets mainly chocolate. Seen today in urgent care for left knee pain and swelling of her lower extremities. Patient was placed on furosemide 20 mg. PFSH Medical History Peroneal tendonitis of left lower extremity Anxiety Pruritus History of palpitations Abdominal pain Tinnitus H. 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: House Are you a primary zoo caretaker to a significant other at home: No Do you presently have visiting nurse or other home services: No Alcohol intake: current Alcohol intake frequency: does not drink Patient Tobacco Use Status: Never used Tobacco e-Cigarette/Vaping Use: Never Used Current occupational status: 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 Cognitive needs: No Hearing needs: No Vision needs: Yes Review of Systems Const Denies weight gain and Denies weight loss ENT Reports no additional complaints, Denies dysphagia and Denies odynophagia Card Reports no additional complaints Resp Reports no additional complaints GI Denies abdominal pain, Denies belching, Denies melena, Denies bloating, Reports constipation, Denies dysphagia, Denies excessive flatus, Denies dyspepsia, Reports heartburn (Occasional), Denies diarrhea, Denies loose stools, Denies nausea, Denies odynophagia and Denies vomiting Musc Reports no additional complaints Neuro Reports no additional complaints Psych Reports no additional complaints Endo Reports no additional complaints Physical Exam Vital Signs: Last Vital Signs Pulse 67 08/21/23 09:26 BP 138/67 08/21/23 09:26 Pulse Ox 98 08/21/23 09:26 BMI result Body Mass Index 39.7 Const General: healthy appearing and no acute distress Nutritional Appearance: obese Orientation/consciousness: patient oriented x3 Resp Effort & Inspection: normal respiratory effort, able to speak in complete sentences, no tracheal deviation and symmetric chest movement Auscultation: clear to auscultation bilaterally Cardio Rate: regular rate Heart sounds: S1 normal heart sound present and S2 normal heart sound present GI Inspection: Yes normal to inspection, No distended and Yes obesity Palpation (GI): Soft to palpation, not firm, nontender and No hepatosplenomegaly present Auscultation: normal bowel sounds General: Yes no CVA tenderness Back/Spine/Pelvis Back: no CVA tenderness Skin General skin exam: elasticity normal, turgor normal and dry skin Neuro General: patient oriented x3 Psych Appearance: grossly normal Mental Status: mental status grossly normal Assessment & Plan Assessment & Plan (1) GERD (gastroesophageal reflux disease): Code(s): K21.9 - Gastro-esophageal reflux disease without esophagitis Qualifiers: Esophagitis presence: esophagitis presence not specified Qualified Code(s): K21.9 - Gastro-esophageal reflux disease without esophagitis (2) IBS (irritable bowel syndrome): Code(s): K58.9 - Irritable bowel syndrome without diarrhea Qualifiers: Irritable bowel syndrome type: with both diarrhea and constipation Qualified Code(s): K58.2 - Mixed irritable bowel syndrome (3) Chronic idiopathic constipation: Code(s): K59.04 - Chronic idiopathic constipation Plan Continue Nexium daily. Avoid dietary triggers and late night snacking. Staying upright for minimum 3 hours after meals discussed with patient. Patient will continue taking Colace. Increase fluid intake and activity to promote better bowel motility, patient was encouraged to stop eating sweets. Eat smaller meals and more often. Increase fiber intake. Patient will follow-up in our office on as needed basis. She will be due to go for colonoscopy in 2025. Patient was encouraged to call our office if she will have any GI concerning symptoms. She is agreeable to this plan and verbalizes understanding of instructions. She was given the opportunity to ask questions and all questions answered. Thank you for allowing me to participate in her care Medications: Refilled esomeprazole magnesium (Nexium) 40 mg PO DAILY 30 caps 5RF K21.9 - Gastro-esophageal reflux disease without esophagitis docusate sodium 100 mg PO BEDTIME 90 caps 3RF K59.00 - Constipation, unspecified Coding Level of Care Code Est Pt Level 3 (31282) Diagnoses Gastroesophageal reflux disease, unspecified whether esophagitis present K21.9 Esophagitis presence: esophagitis presence not specified Irritable bowel syndrome with both constipation and diarrhea K58.2 Irritable bowel syndrome type: with both diarrhea and constipation Chronic idiopathic constipation K59.04 Time Spent (min) 30 Comment 20 minutes spent with patient and additional 10 minutes spent reviewing her records
[2023-08-21 09:26] VITALS: BP 138/67; PULSE 67; O2SAT 98; BMI 39.7
== END 2023-08-21 10:22 | disposition home or self-care (01) ==
PROVIDERS: PCP Internal Medicine; Visit Provider Nurse Practitioner Family
DX: K21.9 Gastro-esophageal reflux disease without esophagitis (principal); K58.2 Mixed irritable bowel syndrome; K59.04 Chronic idiopathic constipation
CPT/HCPCS: 99213

== ENCOUNTER → 2023-08-21 09:23 | Outpatient (BNVA) | payer OTHER, SELFPAY | PROVIDERS: PCP Internal Medicine; Visit Provider Nurse Practitioner Family ==

== ENCOUNTER 2024-05-20 12:55 | Outpatient (AMB) | payer OTHER, SELFPAY ==
[2024-05-20 12:57] VITALS: BP 108/70; PULSE 69; RESP 18; TEMP 36.7; O2SAT 95; BMI 40.9
--- NOTE | 2024-05-20 12:57 | A.OFFPC_ITS ---
Vital Signs 05/20/24 12:57 Height 5 ft 3 in Weight 231 lb BMI 40.9 BP 108/70 Blood Pressure Location Rt brachial Position Sitting Respiration 18 Pulse 69 Pulse Source Pulse Oximeter Temp 98.1 F Temp Source Oral Pulse Oximetry (%) 95 Oxygen Delivery Method Room Air Intake Visit Reasons: PE Intake Note: Pt is here today for PE. Allergies No Known Allergies Allergy (Verified 05/20/24 12:58) Medication List - Last Reconciled 05/20/24 by Raisa Giraldo MD acetaminophen 1,000 mg (2 x 500 mg) PO Q6H PRN docusate sodium 100 mg PO BEDTIME esomeprazole magnesium (Nexium) 40 mg PO DAILY Tobacco use date assessed: 05/20/24 Dental Screening Dental Screen Date: 05/20/24 Did you have a dental visit in the last 12 months?: Yes Did you have a dental problem in the last 6 months where you did not have access to dental care?: No Was dental information given to patient?: Patient has dentist HPI PE HPI0 Details Patient presents for physical. She has been under lot of stress because her was diagnosed with kidney failure and has been on dialysis waiting for kidney transplant. 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 She denies any injury she was seen by ortho and had negative ankle x-ray, PFS Medical History Peroneal tendonitis of left lower extremity Anxiety Pruritus History of palpitations Abdominal pain Tinnitus H. 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 1. Little interest or pleasure in doing things: not at all 2. Feeling down, depressed, or hopeless: several days 3. Trouble falling or staying asleep, or sleeping too much: several days 4. Feeling tired or having little energy: several days 5. Poor appetite or overeating: several days 6. Feeling bad about yourself - or that you are a failure or have let yourself or your family down: several days 7. Trouble concentrating on things, such as reading the newspaper or watching television: not at all 8. Moving or speaking so slowly that other people could have noticed. Or the opposite - being so fidgety or restless that you have been moving around a lot more than usual: not at all 9. Thoughts that you would be better off or of hurting yourself in some way: not at all Total score: 5 Depression Screening Interpretation: Negative Depression Screening Done: Yes 19980 - PHQ-9 Billing: Yes Source: Developed by Drs. John Maguire, Dorinda Duran, Brent Shepard and colleagues, with an educational helen from [employer]. Thrive Questionnaire Date Thrive assessed: 05/20/24 I am a: Patient What is your living situation today?: I have a steady place to live Within the past 12 months, did the food you bought not last and you didn't have the money to get more?: Never true Within the past 12 months, did you worry whether your food would run out before you got money to buy more?: Never true Do you have trouble paying for medicines?: No Do you have trouble getting transportation to medical appointments?: No Do you have trouble paying your heating and electricity bill?: Yes Do you have trouble taking care of your child, family member or friend?: No Do you have trouble with day-to-day activities such as bathing, preparing meals, shopping, managing finances, etc.?: No Are you currently unemployed and looking for a job?: No Are you interested in more education?: No Please select the resources that you would like help with: None Currently or been in a relationship where the following occur: No concerns reported THRIVE Score: 1 AUDIT C Alcohol Use Questionnaire (AUDIT-C) 1. How often do you have a drink containing alcohol?: Never 3. How often do you have six or more drinks on one occasion?: Never Total Score: 0 ABDOULAYE-7 AMB Questionnaire ABDOULAYE-7 Date ABDOULAYE - 7 assessed: 05/20/24 Feeling nervous, anxious, or on edge: 1 = Several days Not being able to stop or control worryin = Several days Worrying too much about different things: 1 = Several days Trouble relaxin = Several days Being so restless that it is hard to sit still: 0 = Not at all Becoming easily annoyed or irritable: 1 = Several days Feeling afraid as if something awful might happen: 0 = Not at all Total ABDOULAYE-7 score (0-4 normal; 5-9 mild; 10-14 moderate; 15-21 severe): 5 Source: Developed by Drs. John Maguire, Dorinda Duran, Brent Shepard and colleagues, with an educational helen from [employer]. ABDOULAYE-7 Assessment Billing ABDOULAYE-7 Assessment Tool: ABDOULAYE-7 Assessment 24744 Review of Systems Const All systems reviewed & are unremarkable except as noted in HPI and below Eyes Reports no additional complaints ENT Reports no additional complaints Card Reports no additional complaints Resp Reports no additional complaints GI Reports no additional complaints Reports no additional complaints Physical exam (Primary Care) Vital Signs: Last Vital Signs Temp 98.1 F 05/20/24 12:57 Pulse 69 05/20/24 12:57 Resp 18 05/20/24 12:57 BP 108/70 05/20/24 12:57 Pulse Ox 95 05/20/24 12:57 Oxygen Delivery Method Room Air 05/20/24 12:57 BMI result Body Mass Index 40.9 Tobacco/Smoking Status: Tobacco use Status Tobacco use date assessed 05/20/24 05/20/24 13:03 Patient Tobacco Use Status Never used Tobacco 05/20/24 13:03 e-Cigarette/Vaping Use Never Used 05/20/24 13:03 PHQ-9: PHQ-9 Score PHQ-9: Total score 5 05/20/24 13:03 Depression Screening Interpretation: Negative Thrive Assessment: Date of Thrive Assessment Date Thrive assessed 05/20/24 05/20/24 13:03 Currently or been in a relationship where the following occur: No concerns rep orted Const General: no acute distress HENMT Ears: hearing grossly normal bilaterally Face and sinus: Yes normal facial exam Teeth and gingiva: dentition normal Eyes General: appearance normal, both eyes and all related structures Neck Neck: Yes no lymphadenopathy and Yes supple Resp Effort & Inspection: normal respiratory effort Auscultation: clear to auscultation bilaterally Cardio Rhythm: regular rhythm Heart sounds: S1 normal heart sound present and S2 normal heart sound present GI Inspection: Yes normal to inspection Palpation (GI): Soft to palpation Percussion: Yes normal to percussion Auscultation: normal bowel sounds Extrem Other: There is a slightly decreased range of motion of the left ankle no soft tissue swelling erythema over General: Yes no clubbing, cyanosis or edema Coding Level of Care Code Est Pt Prev Care 40-64y(89304) Diagnoses Annual physical exam Z00. Anxiety F41.9 Obese E66.9 Additional Codes ABDOULAYE-7 Assessment Billing - ABDOULAYE-7 Assessment Tool: ABDOULAYE-7 Assessment 36287 ([id number]) PHQ-9 - 83247 - PHQ-9 Billing: Yes ([id number]) Assessment & Plan Assessment & Plan (1) Annual physical exam: Comment: s/p hysterectomy does not need Pap Code(s): Z00.00 - Encounter for general adult medical examination without abnormal findings Category: Medical Plan: Well-balanced diet regular physical activity discussed with the patient she will schedule an appointment for mammogram at [facility]. she is up-to-date with colonoscopy (2020. Patient had a hysterectomy does not need a Pap smear (2) Anxiety: Code(s): F41.9 - Anxiety disorder, unspecified Category: Medical Plan: Stress management discussed with the patient she will be referred to counseling. (3) Obese: Code(s): E66.9 - Obesity, unspecified Category: Medical Plan: Decrease caloric intake increase physical activity weight loss discussed with the patient Orders: Orders Comprehensive [place]. Panel Fast Today Z00.00 - Encounter for general adult medical examination without abnormal findings Complete Blood Count Auto Diff Today Z00.00 - Encounter for general adult medical examination without abnormal findings TSH reflex Free T4 Today Z00.00 - Encounter for general adult medical exami [facility] without abnormal findings Lipid Panel Today Z00.00 - Encounter for general adult medical examination without abnormal findings UA w Microscopic Today Z00.00 - Encounter for general adult medical examination without abnormal findings Vitamin D 25-OH Total Today Z00.00 - Encounter for general adult medical examin ation without abnormal findings PT Evaluation and Treatment Today M25.572 - Pain in left ankle and joints of left foot
--- OUTSIDE RECORDS SUMMARY | 2024-05-20 15:21 | XMS_ITS | Clinical Summary ---
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 Family History Medical History Relation Name Comments Diabetes Mother Relation Name Status Comments Mother Social History Tobacco Use Types Packs/Day Years Used Date Smoking Tobacco: Never Alcohol Use Standard Drinks/Week Comments Not Asked 0 (1 standard drink = 0.6 oz pur e alcohol) Comments Unknown Sex and Gender Information Value Date Recorded Sex Assigned at Not on file Legal Sex Female 8:29 AM EST Gender Identity Not on file Sexual Orientation Not on file Obstetrics History Plan of Treatment Health Maintenance Due Date Last Done Comments Hepatitis B Vaccines (1 of 3 - 19+ 3-dose series) 01/29/1987 Cervical Cancer Screening: Pap Smear 01/29/1989 Pneumococcal Vaccine: 50+ Years (1 of 1 - PCV) 01/29/2018 Zoster Vaccines (1 of 2) 01/29/2018 DTaP,Tdap,and Td Vaccines (2 - Td or Tdap) 12/28/2019 12/27/2009 Colorectal Cancer Screening: Colonoscopy 02/24/2022 Depression Screening 02/24/2022 HIV Screening 02/24/2022 Hepatitis C Screening 02/24/2022 Social Influencers of Health Screening 02/24/2022 COVID-19 Vaccine ( - season) 2023 Influenza Vaccine (#1) 2023 Breast Cancer Screening 05/13/2024 05/13/19 23, 05/06/2021, 02/27/2020, Additional history exists HIB Vaccines Aged Out No longer eligi ble based on patient's age to complete this topic HPV Vaccines Aged Out No longer eligi ble based on patient's age to complete this topic Hepatitis A Vaccines Aged Out No long er eligible based on patient's age to complete this topic IPV Vaccines Aged Out No longer eligi ble based on patient's age to complete this topic MMR Vaccines Aged Out No longer eligi ble based on patient's age to complete this topic Meningococcal ACWY Vaccine Aged Out N o longer eligible based on patient's age to complete this topic Meningococcal B Vacine Aged Out No lo nger eligible based on patient's age to complete this topic Pneumococcal Vaccine: Pediatrics (0 to 5 Years) and At-Risk Patients (6 to 64 Years) Aged Out No longer eligible based on patient's age to complete this topic RSV Immunization Patients Under 20 months Aged Out No longer eligible based on patient's age to complete this topic Varicella Vaccines Aged Out No longer eligible based on patient's age to complete this topic Procedures Procedure Name Priority Date/Time Associated Diagnosis Comments [facility] SCREENING DIGITAL Routine 05/13/2022 8:26 AM EST Encounter for screening mammogram for malignant neoplasm of breast from Last 3 Months or Most Recently Relevant to Health Maintenance Results * [facility] SCREENING DIGITAL (05/13/2022 8:26 AM EST) Anatomical Region Laterality Modality Mammography 05/09/2022 9:53 AM EST Narrative 05/13/2022 8:26 AM EST [facility] Diagnostic Imaging Department [address] [place] [address] [id number] Patient: ??ODILON SWEENEY I ?/Age/Sex: 1970 - 52 - F Unit#: ??[id number] ? Location/Status: ??SPDIMAM/REG CLI ? Mnemonic/Ordering Site: ??DIGSC/SPMAIN Ordering Physician: ??EFE MENA MD [facility] Screening Digital - 05/11/22741 EXAM: [facility] Screening Digital EXAM DATE AND TIME: 05/11/2022 7:43 AM HISTORY: ??Screening. Right breast biopsy in 2019, pathology benign. COMPARISON: ??05/05/21, 02/26/20, 01/11/19, 12/21/18, 08/14/09 TECHNIQUE: CC and MLO views of both breasts were obtained using full field digital mammography. Bilateral digital breast tomosynthesis was performed in the MLO projection. Computer aided detection with [employer] 7.2-H and [employer] 3D 3.1 was employed. TISSUE DENSITY: c. The breasts are heterogeneously dense, which may obscure small masses. FINDINGS: No suspicious masses, grouped microcalcifications, or areas of architectural distortion are seen. An approximately 4 cm round mass of mixed fat and soft tissue attenuation, with a thin capsule, is again seen in the posterior 8 to 9:00 position of the right breast, most likely a hamartoma. Scattered nodular asymmetries elsewhere in both breasts remain stable dating back to the initial, 2009 exam. A biopsy marker is again seen in the retroareolar area of the right breast. The skin and vascularity are unremarkable. IMPRESSION: Stable mammographic appearance of the breasts. ??No evidence of malignancy is seen. A negative mammogram in the presence of a clinically suspicious palpable abnormality does not preclude the possibility of malignancy or alter the indica tions for biopsy. BI-RADS: ??Category 2: Benign RECOMMENDATION(S): 1: Routine screening mammogram BILATERAL in 1 year. 16529, [id number] 2762F, 7024F Dictating Physician: ??TARI JOHNSON MD Electronically Signed by: ??TARI JOHNSON MD Dic Date/Time: ??05/13/22823 Sign date/Time: ??05/13/22825 Procedure Note Tari Johnson MD - 04/25/2023 [facility] Diagnostic Imaging Department [address] [place] [id number] Patient: ODILON SWEENEY [place] /Age/Sex: 1970 - 52 - F Unit#: [id number] Location/Status: [facility] CLI Mnemonic/Ordering Site: DIGCT/[facility] Ordering Physician: EFE MENA MD [facility] Screening Digital - 05/11/22 - 42 EXAM: [facility] Screening Digital EXAM DATE AND TIME: 05/11/2022 7:43 AM HISTORY: Screening. Right breast biopsy in 2019, pathology benign. COMPARISON: 05/05/21, 02/26/20, 01/11/19, 12/21/18, 08/14/09 TECHNIQUE: CC and MLO views of both breasts were obtained using fullfield digital mammography. Bilateral digital breast tomosynthesis was performedin the MLO projection. Computer aided detection with [employer] 7.2-H [employer] 3D 3.1 was employed. TISSUE DENSITY: c. The breasts are heterogeneously dense, which mayobscure small masses. FINDINGS: No suspicious masses, grouped microcalcifications, or areas ofarchitectural distortion are seen. An approximately 4 cm round mass of mixed fat and soft tissue attenuation,with a thin capsule, is again seen in the posterior 8 to 9:00 position of theright breast, most likely a hamartoma. Scattered nodular asymmetries elsewherein both breasts remain stable dating back to the initial, 2009 exam. A biopsy marker is again seen in the retroareolar area of the rightbreast. The skin and vascularity are unremarkable. IMPRESSION: Stable mammographic appearance of the breasts. No evidence of malignancyis seen. A negative mammogram in the presence of a clinically suspicious palpable abnormality does not preclude the possibility of malignancy or alter theindica tions for biopsy. BI-RADS: Category 2: Benign RECOMMENDATION(S): 1: Routine screening mammogram BILATERAL in 1 year. 10080, 94249 3342F, 7025F Dictating Physician: TARI JOHNSON MD Electronically Signed by: TARI JOHNSON MD Dic Date/Time: 05/13/22823 Sign date/Time: 05/13/22825 us Efe Mena MD IMG BI PROCEDURES Final Result from Last 3 Months or Most Recently Relevant to Health Maintenance Care Teams Environmental Epidemiologist Relationship Specialty Start Date End Date Odell Wheeler MD [address] [place] [address] Dr Derrick [place] PCP - General 03/28/14
== END 2024-05-20 13:35 | disposition home or self-care (01) ==
PROVIDERS: PCP Internal Medicine; Visit Provider Internal Medicine
DX: Z00.00 Encounter for general adult medical examination without abnormal findings (principal); E66.9 Obesity, unspecified; Z68.41 Body mass index [BMI] 40.0-44.9, adult; F41.9 Anxiety disorder, unspecified

== ENCOUNTER → 2024-05-20 12:55 | Outpatient (BNVA) | payer OTHER, SELFPAY | PROVIDERS: PCP Internal Medicine; Visit Provider Internal Medicine | DX: Z00.00 Encounter for general adult medical examination without abnormal findings (principal); F41.9 Anxiety disorder, unspecified; E66.9 Obesity, unspecified; Z68.41 Body mass index [BMI] 40.0-44.9, adult; M25.572 Pain in left ankle and joints of left foot; Z90.710 Acquired absence of both cervix and uterus | CPT/HCPCS: 96127 ==

== ENCOUNTER 2024-09-20 07:59 | Outpatient (REF) | payer OTHER, SELFPAY ==
[2024-09-20 10:04] LABS: MANUAL DIFF FLAG NO
[2024-09-20 10:30] LABS: Basophils Absolute Auto 0.1 X10*3/uL (0.0-0.2); Basophils Percent Auto 1.7 % (0-2); Eosinophils Absolute Auto 0.2 X10*3/uL (0.0-0.4); Eosinophils Percent Auto 5.8 % (0-4); Hemoglobin 14.3 g/dl (12.0-16.0); Imm Gran Abs Auto 0.01 X10*3/uL (0.00-0.03); Imm Gran Pct Auto 0.2 % (0.0-0.4); Lymphocytes Absolute Auto 1.3 X10*3/uL (1.2-4.9); Lymphocytes Percent Auto 31.9 % (20-40); Mean Corpuscular HGB Conc 34.9 g/dl (31.0-35.0); Mean Corpuscular Hemoglobin 30.9 pg (27.0-33.0); Mean Corpuscular Volume 88.6 fL (80.0-98.0); Monocytes Absolute Auto 0.3 X10*3/uL (0.1-1.2); Monocytes Percent Auto 6.3 % (2-11); Neutrophils Absolute Auto 2.2 x10*3/uL (2.0-8.3); Neutrophils Percent Auto 54.1 % (45-73); Platelet Count 249 X10*3/uL (160-400); Red Blood Count 4.63 X10*6/uL (4.20-5.50); Red Cell Distribution Width 11.9 % (11.0-16.0); White Blood Count 4.1 X10*3/uL (4.8-10.8)
[2024-09-20 10:30] LABS: Alanine Aminotransferase 22 U/L (0-31); Albumin Level 4.3 g/dL (3.5-5.0); Alkaline Phosphatase 78 U/L (39-117); Anion Gap 12 (12-20); Aspartate Amino Transferase 21 U/L (5-31); Bilirubin Total 0.6 mg/dL (0.0-1.0); Blood Urea Nitrogen 16 mg/dL (9-16); Calcium 8.9 mg/dL (8.4-10.2); Carbon Dioxide 26 mmol/L (22-29); Chloride 108 mmol/L (96-108); Estimated Glomerular Filt Rate > 60; Glucose Random 90 mg/dL (60-115); Potassium 3.9 mmol/L (3.3-5.1); Sodium 142 mmol/L (135-145); Total Protein 6.9 g/dL (6.5-8.0)
== END 2024-09-20 08:00 | disposition home or self-care (01) ==
LOC: HO.HMGCLDS 07:59
PROVIDERS: PCP Internal Medicine; Visit Provider Physician Assistant Medical
DX: M25.571 Pain in right ankle and joints of right foot (principal); M25.572 Pain in left ankle and joints of left foot
CPT/HCPCS: 36415; 80053; 85025

== ENCOUNTER 2024-09-20 07:59 | Outpatient (AMB) | payer OTHER, SELFPAY ==
--- OUTSIDE RECORDS SUMMARY | 2024-09-20 08:01 | XMS_ITS | Clinical Summary ---
Author Organization [facility] Address [address] [place] [address] Phone Care Team Providers Care Can Cutter Name Role Phone Raisa Giraldo MD Primary Care Provider [phone] Encounters Date Type Department Care Team Description 08/21/2024 7:07 AM EDT - 08/21/2024 11:59 PM EDT Hospital [facility] at [address] [address] Encounter for screening mammogram for breast cancer Discharge Disposition: Home or Self Care from Last 3 Months Surgical History Surgery Date Site/Laterality Comments SECTION PROCEDURE: [place] DELIVERY ONLY TONSILLECTOMY PROCEDURE: HISTORICAL TONSILLECTOMY TUBAL LIGATION PROCEDURE: HISTORICAL TUBAL LIGATION STEREOTACTIC CORE BIOPSY Right Medical History Medical History Date Comments 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 Family History Medical History Relation Name Comments Diabetes Mother Relation Name Status Comments Mother Social History Tobacco Use Types Packs/Day Years Used Date Smoking Tobacco: Never Alcohol Use Standard Drinks/Week Comments Not Asked 0 (1 standard drink = 0.6 oz pur e alcohol) Comments No Sex and Gender Information Value Date Recorded Sex Assigned at Female 08/11/2024 3:27 PM EDT Legal Sex Female 8:29 AM EST Gender Identity Female 08/11/2024 3:27 PM EDT Sexual Orientation Straight 08/11/2024 3: 27 PM EDT Obstetrics History Para Term AB IAB SAB Ectopic Multiple Livin g Live Births 5 Last Filed Vital Signs Vital Sign Reading Time Taken Comments Blood Pressure - - Pulse - - Temperature - - Respiratory Rate - - Oxygen Saturation - - Inhaled Oxygen Concentration - - Weight 99.8 kg (220 lb) 08/21/2024 7:10 AM EDT Height 160 cm (5' 3 ) 08/21/2024 7:10 AM EDT Body Mass Index 38.97 08/21/2024 7:10 AM EDT Plan of Treatment Health Maintenance Due Date [...] of Health Screening 02/24/2022 COVID-19 Vaccine ( season) 2023 11/30/2020, 10/30/2020 Influenza Vaccine (Season Ended) 2024 01/16/2023, 02/05/2021, 01/13/2018, Additional history exists Breast Cancer Screening 08/21/2026 08/22/19, 05/13/2022, 05/06/2021, Additional history exists HIB Vaccines Aged Out [...] age to complete this topic Meningococcal B Vaccine Aged Out No l onger eligible based on patient's age to complete [...] Procedure Name Priority Date/Time Associated Diagnosis Comments [facility] DIGITAL SCREENING W MARIO BILAT Routine 08/21/2024 7:16 AM EDT Encounter for screening mammogram for breast cancer from Last 3 Months Results * [facility] Digital Screening w Mario bilat (08/21/2024 7:16 AM EDT) Anatomical Region Laterality Modality Breast Bilateral Mammography 08/23/2024 6:51 AM EDT Impressions 08/23/2024 6:59 AM EDT No mammographic evidence of malignancy. No suspicious interval change. A negative mammogram in the presence of a clinically suspicious palpable abnormality does not preclude the possibility of malignancy or alter the indications for biopsy. ASSESSMENT: BI-RADS 2: BENIGN RECOMMENDATION(S): 1: Routine screening mammogram BILATERAL in 1 year. [facility] [address], [id number] -------- FINAL REPORT -------- Dictated By: Ricki Regan Dictated Date: 08/23/2024 06:51 ET Assigned Physician: Ricki Regan Reviewed and Electronically Signed By: Ricki Regan Signed Date: 08/23/2024 06:59 ET Workstation ID: [id number] Transcribed By: Self Edit Transcribed Date: 08/23/2024 06:51 ET Narrative 08/23/2024 6:59 AM EDT EXAM: SCREENING MAMMOGRAPHY, BILATERAL HISTORY: SCREENING. No additional history. COMPARISON: 05/11/22, 05/05/21, 02/26/20 TECHNIQUE: Synthesized CC and MLO projections of each breast. Tomosynthesis of each breast in the CC and MLO projections. ADDITIONAL IMAGING: None Computer-aided detection was employed with the [employer] 3-D. TISSUE DENSITY: There are scattered areas of fibroglandular density. (BI-RADS category B) FINDINGS: RIGHT BREAST: No suspicious mass. No suspicious calcification. No distortion. Unchanged 3 cm fat-containing global asymmetry in the 8 o'clock position 7 cm from the right nipple. This may represent fibroadenoma lipoma and does not require any specific imaging follow-up. Unchanged circumscribed equal density oval masses with typical benign features. No suspicious change in the region of the biopsy site marker. LEFT BREAST: No suspicious mass. No suspicious calcification. No distortion. No additional suspicious left breast findings Procedure Note Ricki Regan MD - 08/23/2024 EXAM: SCREENING MAMMOGRAPHY, BILATERAL HISTORY: SCREENING. No additional history. COMPARISON: 05/11/22, 05/05/21, 02/26/20 TECHNIQUE: Synthesized CC and MLO projections of each breast.Tomosynthesis of each breast in the CC and MLO projections. ADDITIONAL IMAGING: None Computer-aided detection was employed with the [employer] AI 3-D. TISSUE DENSITY: There are scattered areas of fibroglandular density.(BI-RADS category B) FINDINGS: RIGHT BREAST: No suspicious mass. No suspicious calcification. No distortion. Unchanged 3 cm fat-containing global asymmetry in the 8 o'clock position 7cm from the right nipple. This may represent fibroadenoma lipoma and doesnot require any specific imaging follow-up. Unchanged circumscribed equal density oval masses with typical benignfeatures. No suspicious change in the region of the biopsy site marker. LEFT BREAST: No suspicious mass. No suspicious calcification. No distortion. Noadditional suspicious left breast findings IMPRESSION: No mammographic evidence of malignancy. No suspicious interval change. A negative mammogram in the presence of a clinically suspicious palpableabnormality does not preclude the possibility of malignancy or alter theindications for biopsy. ASSESSMENT: BI-RADS 2: BENIGN RECOMMENDATION(S): 1: Routine screening mammogram BILATERAL in 1 year. [facility] location[facility] at [address], [address] -------- FINAL REPORT -------- Dictated By: Ricki Regan Dictated Date: 08/23/2024 06:51 ET Assigned Physician: Ricki Regan Reviewed and Electronically Signed By: Ricki Regan Signed Date: 08/23/2024 06:59 ET Workstation ID: [id number] Transcribed By: Self Edit Transcribed Date: 08/23/2024 06:51 ET us Self Referral [facility] IMG BI PROCEDURES Final Resul t from Last 3 Months Insurance [facility] Care Teams Can Cutter Relationship Specialty Start Date End Date Raisa Giraldo MD PCP - General Internal Medicine 08/21/24
[2024-09-20 08:13] VITALS: BP 118/76; PULSE 72; TEMP 36.4; O2SAT 99; BMI 41.1
--- NOTE | 2024-09-20 08:13 | AM.OFFWIN_ITS ---
Intake Vital Signs 09/20/24 08:13 Height 5 ft 3 in Weight 232 lb BMI 41.1 BP 118/76 Blood Pressure Location Lt brachial Position Sitting Pulse 72 Pulse Source Pulse Oximeter Temp 97.6 F Temp Source Oral Pulse Oximetry (%) 99 Oxygen Delivery Method Room Air Intake Visit Reasons: EP bilat ankle pain, swelling in legs Intake Note: pt presents with bilateral ankle pain starting in the mornings for 2.5 months, gets better when she moves around. States she also has bilateral lower leg swelling, is not elevating her legs at the end of the day. Patient Tobacco Use Status: Never used Tobacco Allergies No Known Allergies Allergy (Verified 09/20/24 08:16) Do you need a note to return to daycare/school/sports/work: Yes HPI HPI Comments History of Present Illness Details History of Present Illness - The patient is a 54-year-old female pr esenting with bilateral ankle pain and leg swelling. - Bilateral ankle pain is worse in the m orning when she first wakes up. - She has swelling on both of her lower legs. - Chest discomfort and heartburn were ex perienced last week. - She admits that she does have a high s alt intake as she snacks on chips at work. - She does work a lot and is on her feet . - Meloxicam was prescribed for joint byron n. - She has no calf pain, redness to the l egs, numbness, or tingling. - She denies CP, SOB, DYER, or PND. Physical Exam General: Cooperative, healthy appearing, comfortable, no acute distress and well developed Respiratory: Normal respiratory effort and able to speak in complete sentences. Clear to auscultation bilaterally. No w/r/r or crackles noted. Cardiovascular: Regular rate and rhythm. Normal S1 and S2. No m/r/g noted. Skin: No rashes or lesions noted Neuro: Patient oriented x3. Sensation is intact. Extremities: Swelling in legs noted, presence of varicose veins, pulses are strong on the LE bilaterally. Negative Homans sign noted. FROM of the ankles bilaterally. No TTP of the medial or lateral malleolus, calcaneous or tarsals. Ambulates with steady gait. Patient was informed and verbally consented to the use of an ambient scribe for clinic note documentation during this visit [facility] Medical History Peroneal tendonitis of left lower extremity Anxiety Pruritus History of palpitations Abdominal pain Tinnitus H. 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, 5 children, Housing: House Are you a primary career education teacher to a significant other at home: No Do you presently have visiting nurse or other home services: No Alcohol intake: current Alcohol intake frequency: does not drink Patient Tobacco Use Status: Never used Tobacco e-Cigarette/Vaping Use: Never Used service: No Current occupational status: 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 - Recommend compression stockings to manage dependent edema and improve circulation. - Advise reduction of salt intake to potentially alleviate symptoms related to swelling. - Order laboratory tests to assess kidney function and complete blood count CBC. - Prescribe medication for inflammation management and recommend follow-up PCP. Orders: Orders Comprehensive Met. Panel Today M79.606 - Pain in leg, unspecified Complete Blood Count Auto Diff Today M79.606 - Pain in leg, unspecified Medications: New naproxen 500 mg PO Q12H PRN 20 tabs 0RF pain 7 days Coding Level of Care Code Est Pt Level 4 (64731) Diagnoses Leg pain, bilateral M79.604; M79.605
== END 2024-09-20 08:59 | disposition home or self-care (01) ==
PROVIDERS: PCP Internal Medicine; Visit Provider Physician Assistant Medical
DX: M79.604 Pain in right leg (principal); M79.605 Pain in left leg